=== PATIENT | female | born 1955 | race Caucasian/White ===

== ENCOUNTER → 2017-09-17 | Outpatient (CLI) | payer OTHER ==
[~2017-09-17] MED LIST: ATEN50; CIPR500 PO; HYDACE5 PO
[2017-09-19 14:46] LABS: HPV Genotype 16 Not Detected (NOTDET); HPV Genotype 18 Not Detected (NOTDET)
[2017-09-24 13:17] LABS: HPV High Risk Other Not Detected (NOTDET)
== END | disposition home or self-care (01) ==
LOC: OLS 12:13 → LAB SHORT 12:13
PROVIDERS: Nurse Practitioner Women's Health
DX: Z12.72 Encounter for screening for malignant neoplasm of vagina (principal); Z91.89 Other specified personal risk factors, not elsewhere classified
CPT/HCPCS: 87624; G0123

== ENCOUNTER 2018-05-31 08:26 | Day surgery (SDC) | payer OTHER | END 2018-05-31 22:45 | disposition home or self-care (01) | LOC: MOI US 08:26 → MOI MAM 08:45 → MOI US 22:45 | DX: C50.912 Malignant neoplasm of unspecified site of left female breast (principal) | CPT/HCPCS: 19083; 77065; 88305; 88341; 88342; A4648; G0279 ==

== ENCOUNTER 2018-06-11 10:08 | Emergency (ER) | payer OTHER ==
[~2018-06-11] VITALS: Ht 157.5 cm; Wt 91.6 kg
[2018-06-11] MEDS ORDERED: AMLO5 PO (10:36)
[2018-06-11] MEDS ORDERED: Ventolin/Prove6.7 GM (10:36)
[2018-06-11] MEDS ORDERED: SPIRIVA RESPIMAT4 GM IH (10:36)
[2018-06-11] MEDS ORDERED: METO25 (10:37)
[2018-06-11] MEDS ORDERED: Prednisone20 MG PO (11:28)
[2018-06-11] MEDS ORDERED: Mucinex600 MG PO (11:52)
[2018-07-05] MEDS ORDERED: AMLO5 PO (08:09)
[2018-07-05] MEDS ORDERED: IBU800 MG PO (08:12)
[2018-07-05] MEDS ORDERED: METO25 PO (08:12)
[2018-07-05] MEDS ORDERED: ASPI81CH PO (08:13)
[2018-07-05] MEDS ORDERED: CONEST.625 VAG (08:14)
== END 2018-06-11 11:38 | disposition home or self-care (01) ==
LOC: ER 10:08
DX: J45.909 Unspecified asthma, uncomplicated (principal); C50.919 Malignant neoplasm of unspecified site of unspecified female breast; F17.200 Nicotine dependence, unspecified, uncomplicated; Z85.3 Personal history of malignant neoplasm of breast; Z88.5 Allergy status to narcotic agent; Z79.899 Other long term (current) drug therapy
CPT/HCPCS: 36415; 71045; 93005; 93010; 94640; 94664; 99284-25

== ENCOUNTER 2018-06-29 08:55 | Day surgery (SDC) | payer OTHER ==
[~2018-06-29 08:55] MED LIST changes: +AMLO5 PO; +METO25; +Mucinex600 MG PO; +Prednisone20 MG PO; +SPIRIVA RESPIMAT4 GM IH; +Ventolin/Prove6.7 GM
[2018-07-05] MEDS ORDERED: AMLO5 PO (08:09)
[2018-07-05] MEDS ORDERED: IBU800 MG PO (08:12)
[2018-07-05] MEDS ORDERED: METO25 PO (08:12)
[2018-07-05] MEDS ORDERED: ASPI81CH PO (08:13)
[2018-07-05] MEDS ORDERED: CONEST.625 VAG (08:14)
== END 2018-06-29 22:43 | disposition home or self-care (01) ==
LOC: MOI US 08:55 → MOI MAM 09:30 → MOI US 09:30
DX: C50.812 Malignant neoplasm of overlapping sites of left female breast (principal)
CPT/HCPCS: 19285; 77065

== ENCOUNTER 2018-07-09 07:50 | Day surgery (SDC) | payer OTHER ==
[~2018-07-09] VITALS: Ht 160 cm; Wt 95.7 kg
[~2018-07-09 07:50] MED LIST changes: +ASPI81CH PO; +CONEST.625 VAG; +IBU800 MG PO; +METO25 PO
--- NOTE | 2018-07-09 09:34 | NUR ---
0915 CAOX4, VSS, CONFIRMS NPO/PREP/PROCEDURE, TOOK BETABLOCKER THIS AM. LUNGS COARSE T/O BILAT, SMOKER. Ambulatory in Day Surgery Surgical site prepped with 2% Chlorhexidine cloth wipe. History, Chart, Medications and Allergies reviewed before start of procedure.Patient confirms NPO status and agrees with scheduled surgery. Pre-Op teaching done. Pt verbalizes understanding. Patient reports completing Chlorhexadine shower X2 prior to admission to hospital.
[2018-07-09] MEDS ORDERED: TIOT18 INH (09:45)
--- NOTE | 2018-07-09 11:48 | NUR ---
07/09/18 1148 Prince Parry MEDICATION ON PAPER CHART-DID NOT CROSS OVER IN COMPUTER
--- NOTE | 2018-07-09 13:43 | NUR ---
FROM PACU TO STEP WANTING TO BE DISCHARGED. GIVEN ICE CHIPS AND PROCEEDED WITH PREPARING PATIENT FOR DISCHARGE. Discharge instructions reviewed with patient. Patient verbalizes understanding. Copy given to patient to take home. Patient States Post-Procedure ride home has been arranged. Discharged via wheelchair to private car for ride home.
== END 2018-07-09 23:10 | disposition home or self-care (01) ==
LOC: RAD 07:50 → ORSCMMR 07:51 → RAD 08:00 → NM 09:00 → RAD 23:10
DX: C50.812 Malignant neoplasm of overlapping sites of left female breast (principal); Z88.2 Allergy status to sulfonamides; Z88.5 Allergy status to narcotic agent; Z88.1 Allergy status to other antibiotic agents; Z17.0 Estrogen receptor positive status [ER+]
CPT/HCPCS: 38792; 76098; 88307; 88342; A9520; J0330; J0690; J1100; J2250; J2405; J2765; J3010; J7120; Q9968

== ENCOUNTER → 2019-03-02 | Outpatient (CLI) | payer OTHER ==
[~2019-03-02] MED LIST changes: +TIOT18 INH
[2019-03-04 14:07] LABS: HPV 16 Negative (Negative); HPV 18 Negative (Negative); HPV OTHER HR TYPES Negative (Negative)
== END | disposition home or self-care (01) ==
LOC: LAB SHORT 17:28 → LAB 17:28
PROVIDERS: Nurse Practitioner Women's Health
DX: Z12.72 Encounter for screening for malignant neoplasm of vagina (principal); Z91.89 Other specified personal risk factors, not elsewhere classified
CPT/HCPCS: 87624; G0123

== ENCOUNTER 2019-05-24 07:37 | Emergency (ER) | payer OTHER ==
[~2019-05-24] VITALS: Ht 165.1 cm; Wt 81.7 kg
[2019-05-24 08:25] LABS: Source, Urine Clean Catch
[2019-05-24 08:30] LABS: BASOPHILS ABSOLUTE AUTO 0.04 K/mm3 (0.00-0.23); BASOPHILS PERCENT AUTO 1 % (0-2); EOSINOPHILS ABSOLUTE AUTO 0.07 K/mm3 (0.00-0.68); EOSINOPHILS PERCENT AUTO 1 % (0-6); Hematocrit 45.9 % (33.0-51.0); IMMATURE GRAN ABSOLUTE AUTO 0.04 K/mm3 (0.00-0.10); IMMATURE GRAN PERCENT AUTO 1 % (0-1); LYMPHOCYTES ABSOLUTE AUTO 1.29 K/mm3 (0.84-5.20); LYMPHOCYTES PERCENT AUTO 16 % (21-46); MONOCYTES ABSOLUTE AUTO 0.72 K/mm3 (0.16-1.47); MONOCYTES PERCENT AUTO 9 % (4-13); Mean Corpuscular HGB 36.4 pg (26.0-34.0); Mean Corpuscular HGB Conc 34.9 g/dL (31.5-36.5); Mean Corpuscular Volume 104 fL (80-100); Mean Platelet Volume 10.1 fL (9.1-12.4); NEUTROPHILS ABSOLUTE AUTO 6.12 K/mm3 (1.96-9.15); NEUTROPHILS PERCENT AUTO 74 % (41-73); Platelet Count 175 K/mm3 (150-400); RDW Coefficient Variation 13.4 % (11.7-14.2); RDW Standard Deviation 51.7 fL (35.1-46.3); White Blood Cell Count 8.28 K/mm3 (4.00-11.30)
[2019-05-24 08:37] LABS: Blood, Urine 2+ (Neg); Glucose Qualitative, Urine Neg (Neg); Ketones, Urine 1+ (Neg); Leukocyte Esterase, Urine 1+ (Neg); Nitrite, Urine Pos (Neg); Protein, Urine 2+ (Neg); Specific Gravity, Urine 1.015 (1.003-1.022); Urobilinogen, Urine 3+ (Normal)
[2019-05-24 08:51] LABS: Appearance, Urine Clear (Clear); Bilirubin, Urine 1+ (Neg); Color, Urine Orange (P-Yellow)
[2019-05-24 08:52] LABS: Albumin, Blood 3.4 g/dL (3.4-5.0); Albumin/Globulin Ratio 0.9 (0.8-1.8); Bilirubin, Total 0.3 mg/dL (0.1-1.0); Bun/Creatinine Ratio 9.6 (12.0-20.0); Calcium, Blood 9.6 mg/dL (8.5-10.1); Creatinine, Blood 1.36 mg/dL (0.40-1.00); Globulin, Blood 3.8 g/dL (2.2-4.0); Potassium, Blood 3.9 mmol/L (3.5-5.5); Total Protein, Blood 7.2 g/dL (6.4-8.2)
[2019-05-24 08:53] LABS: Bacteria Mod /hpf; Squamous Epithelial Cells Few /hpf (Few)
[2019-05-24] MEDS ORDERED: ONDA4ODT MM (10:21)
[2019-05-24] MEDS ORDERED: Percocet 5-3251 EACH PO (10:21)
[2019-05-24] MEDS ORDERED: Keflex500 MG PO (10:21)
== END 2019-05-24 11:18 | disposition home or self-care (01) ==
LOC: ER 07:37
PROVIDERS: Emergency Medicine
DX: N13.2 Hydronephrosis with renal and ureteral calculous obstruction (principal); Z88.5 Allergy status to narcotic agent; Z88.2 Allergy status to sulfonamides; Z88.1 Allergy status to other antibiotic agents; Z88.8 Allergy status to other drugs, medicaments and biological substances; Z79.899 Other long term (current) drug therapy; Z79.82 Long term (current) use of aspirin; Z85.3 Personal history of malignant neoplasm of breast; F17.210 Nicotine dependence, cigarettes, uncomplicated
CPT/HCPCS: 36415; 74176; 80053; 81001; 83690; 85025; 87086; 96361; 96374; 96375; 99284-25; J0696; J1170; J1885; J2405; J7120

== ENCOUNTER 2019-05-26 16:37 | Emergency (ER) | payer OTHER ==
[~2019-05-26] VITALS: Ht 160 cm; Wt 90.7 kg
[~2019-05-26 16:37] MED LIST changes: +Keflex500 MG PO; +ONDA4ODT MM; +Percocet 5-3251 EACH PO
[2019-05-26 17:11] LABS: BASOPHILS ABSOLUTE AUTO 0.04 K/mm3 (0.00-0.23); BASOPHILS PERCENT AUTO 0 % (0-2); EOSINOPHILS ABSOLUTE AUTO 0.14 K/mm3 (0.00-0.68); EOSINOPHILS PERCENT AUTO 1 % (0-6); Hematocrit 47.5 % (33.0-51.0); Hemoglobin 16.1 g/dL (11.5-16.0); IMMATURE GRAN ABSOLUTE AUTO 0.02 K/mm3 (0.00-0.10); IMMATURE GRAN PERCENT AUTO 0 % (0-1); LYMPHOCYTES ABSOLUTE AUTO 1.95 K/mm3 (0.84-5.20); LYMPHOCYTES PERCENT AUTO 19 % (21-46); MONOCYTES ABSOLUTE AUTO 0.82 K/mm3 (0.16-1.47); MONOCYTES PERCENT AUTO 8 % (4-13); Mean Corpuscular HGB 36.3 pg (26.0-34.0); Mean Corpuscular HGB Conc 33.9 g/dL (31.5-36.5); Mean Platelet Volume 9.9 fL (9.1-12.4); NEUTROPHILS ABSOLUTE AUTO 7.45 K/mm3 (1.96-9.15); NEUTROPHILS PERCENT AUTO 72 % (41-73); Platelet Count 209 K/mm3 (150-400); RDW Coefficient Variation 13.5 % (11.7-14.2); RDW Standard Deviation 53.5 fL (35.1-46.3); Red Blood Cell Count 4.44 M/mm3 (3.80-5.20); White Blood Cell Count 10.42 K/mm3 (4.00-11.30)
[2019-05-26 17:12] LABS: Mean Corpuscular Volume 107 fL (80-100)
[2019-05-26 17:33] LABS: Alanine Aminotransfer (ALT/SGP 35 U/L (12-78); Albumin, Blood 3.5 g/dL (3.4-5.0); Albumin/Globulin Ratio 0.9 (0.8-1.8); Alk Phos 60 U/L (50-136); Anion Gap 5 mmol/L (6-16); Aspartate Aminotrans (AST/SGOT 32 U/L (12-37); Bilirubin, Total 0.4 mg/dL (0.1-1.0); Blood Urea Nitrogen 11 mg/dL (8-24); Bun/Creatinine Ratio 13.5 (12.0-20.0); CO2, Blood 25 mmol/L (21-32); Calcium, Blood 8.8 mg/dL (8.5-10.1); Chloride, Blood 106 mmol/L (98-108); Creatinine, Blood 0.81 mg/dL (0.40-1.00); Globulin, Blood 3.9 g/dL (2.2-4.0); Glomerular Filtration Rate >60 (60-); Glucose, Blood 115 mg/dL (70-99); Sodium, Blood 136 mmol/L (136-145); Total Protein, Blood 7.4 g/dL (6.4-8.2)
== END 2019-05-26 20:03 | disposition home or self-care (01) ==
LOC: ER 16:37
PROVIDERS: Emergency Medicine
DX: N23 Unspecified renal colic (principal); I10 Essential (primary) hypertension; Z85.3 Personal history of malignant neoplasm of breast; J45.909 Unspecified asthma, uncomplicated; F17.210 Nicotine dependence, cigarettes, uncomplicated; Z79.899 Other long term (current) drug therapy; Z79.82 Long term (current) use of aspirin
CPT/HCPCS: 36415; 80053; 85025; 96374; 96375; 99284-25; J1170; J1885; J2405

== ENCOUNTER 2019-05-27 23:03 | Emergency (ER) | payer OTHER ==
[~2019-05-27] VITALS: Ht 160 cm; Wt 90.7 kg
[2019-05-28] MEDS ORDERED: KETO10 PO (00:13)
== END 2019-05-28 00:26 | disposition home or self-care (01) ==
LOC: ER 23:03
DX: N20.1 Calculus of ureter (principal); N23 Unspecified renal colic; I10 Essential (primary) hypertension; J45.909 Unspecified asthma, uncomplicated; F17.210 Nicotine dependence, cigarettes, uncomplicated; Z88.5 Allergy status to narcotic agent; Z88.2 Allergy status to sulfonamides; Z88.1 Allergy status to other antibiotic agents; Z88.8 Allergy status to other drugs, medicaments and biological substances; Z79.899 Other long term (current) drug therapy; Z79.82 Long term (current) use of aspirin; Z87.442 Personal history of urinary calculi
CPT/HCPCS: 96372; 99283; J1885; J2405; J3010

== ENCOUNTER → 2019-10-13 | Outpatient (CLI) | payer OTHER ==
[~2019-10-13] MED LIST changes: +KETO10 PO
== END | disposition home or self-care (01) ==
LOC: LAB SHORT 14:00 → LAB EV 14:00
DX: R05 Cough (principal); Z20.828 Contact with and (suspected) exposure to other viral communicable diseases
CPT/HCPCS: U0003

== ENCOUNTER → 2021-05-12 | Outpatient (CLI) | payer OTHER | END | disposition home or self-care (01) | LOC: LAB 15:23 → LAB SHORT 15:23 | DX: R30.9 Painful micturition, unspecified (principal) | CPT/HCPCS: 87077; 87086; 87186 ==

== ENCOUNTER 2021-12-11 10:01 | Inpatient (IN) | payer OTHER ==
[~2021-12-11] VITALS: Ht 160 cm; Wt 72.6 kg
[~2021-12-11 10:01] MED LIST changes: +AMOCLA875 PO; +Diflucan100 MG PO; +IBU800 M1 PO; +LATANOPROST2.5 M3 BOTHEYES; +METOPROLOL TART25 MG PO; +SPIRONOLACTONE50 MG PO; +STIOLTO RESPIMAT4 G1 INH; +Ventolin/Prove6.7 GM INH
[2021-12-11 10:42] LABS: BASOPHILS ABSOLUTE AUTO 0.15 K/mm3 (0.00-0.23); BASOPHILS PERCENT AUTO 1 % (0-2); EOSINOPHILS PERCENT AUTO 0 % (0-6); Hematocrit 46.6 % (33.0-51.0); Hemoglobin 16.7 g/dL (11.5-16.0); IMMATURE GRAN ABSOLUTE AUTO 1.18 K/mm3 (0.00-0.10); IMMATURE GRAN PERCENT AUTO 5 % (0-1); LYMPHOCYTES ABSOLUTE AUTO 1.39 K/mm3 (0.84-5.20); LYMPHOCYTES PERCENT AUTO 6 % (21-46); MONOCYTES ABSOLUTE AUTO 0.92 K/mm3 (0.16-1.47); MONOCYTES PERCENT AUTO 4 % (4-13); Mean Corpuscular HGB 36.7 pg (26.0-34.0); Mean Corpuscular HGB Conc 35.8 g/dL (31.5-36.5); Mean Corpuscular Volume 102 fL (80-100); Mean Platelet Volume 9.5 fL (9.1-12.4); NEUTROPHILS ABSOLUTE AUTO 20.69 K/mm3 (1.96-9.15); NEUTROPHILS PERCENT AUTO 85 % (41-73); Platelet Count 297 K/mm3 (150-400); RDW Coefficient Variation 13.5 % (11.7-14.2); Red Blood Cell Count 4.55 M/mm3 (3.80-5.20); White Blood Cell Count 24.33 K/mm3 (4.00-11.30)
[2021-12-11 11:10] LABS: Albumin, Blood 2.7 g/dL (3.4-5.0); Albumin/Globulin Ratio 0.6 (0.8-1.8); Bilirubin, Total 0.9 mg/dL (0.1-1.0); Calcium, Blood 9.4 mg/dL (8.5-10.1); Creatinine, Blood 0.72 mg/dL (0.40-1.00); Globulin, Blood 4.8 g/dL (2.2-4.0); Potassium, Blood 4.9 mmol/L (3.5-5.5); Total Protein, Blood 7.5 g/dL (6.4-8.2)
[2021-12-11 14:20] LABS: Influenza A, PCR NEGATIVE (NEGATIVE); Influenza B, PCR NEGATIVE (NEGATIVE); Resp Syncytial Virus, PCR NEGATIVE (NEGATIVE); SARS-Cov-2 (COVID-19) PCR, MMC NEGATIVE (NEGATIVE)
[2021-12-12 05:33] LABS: BASOPHILS ABSOLUTE AUTO 0.09 K/mm3 (0.00-0.23); BASOPHILS PERCENT AUTO 0 % (0-2); EOSINOPHILS PERCENT AUTO 0 % (0-6); Hematocrit 44.6 % (33.0-51.0); Hemoglobin 15.6 g/dL (11.5-16.0); IMMATURE GRAN ABSOLUTE AUTO 0.34 K/mm3 (0.00-0.10); IMMATURE GRAN PERCENT AUTO 2 % (0-1); LYMPHOCYTES ABSOLUTE AUTO 0.65 K/mm3 (0.84-5.20); LYMPHOCYTES PERCENT AUTO 3 % (21-46); MONOCYTES ABSOLUTE AUTO 0.51 K/mm3 (0.16-1.47); MONOCYTES PERCENT AUTO 2 % (4-13); Mean Corpuscular HGB 37.1 pg (26.0-34.0); Mean Corpuscular Volume 106 fL (80-100); Mean Platelet Volume 9.9 fL (9.1-12.4); NEUTROPHILS ABSOLUTE AUTO 21.17 K/mm3 (1.96-9.15); NEUTROPHILS PERCENT AUTO 93 % (41-73); Platelet Count 247 K/mm3 (150-400); RDW Coefficient Variation 13.5 % (11.7-14.2); RDW Standard Deviation 53.8 fL (35.1-46.3); White Blood Cell Count 22.76 K/mm3 (4.00-11.30)
--- NOTE | 2021-12-12 05:37 | NUR ---
SHIFT SUMMARY PT ER ADMIT THIS SHIFT FOR PNA. PT BECOMES VERY SOB WITH MINIMAL EXERTION. BREATHING IS POSITIONAL. PT REPORTS THAT SHE IS UNABLE TO LAY FLAT WITHOUT SOB AND BOUTS OF COUGHING. PT HAS AN INTERMITTENT NON PRODUCTIVE HACKING COUGH. 2L O2 IN PLACE, SATS WNL. LUNGS COURSE AND TIGHT WITH EXPIRATORY WHEEZES T/O. IV SOLUMEDROL PER ORDERS. NEB TREATMENTS PER EMAR. PT HAS BEEN INDEPEDNENT IN THE ROOM. A/OX4. PT HAS BEEN RESTLESS AND AWAKE T/O THE NIGHT, AND MOSTLY WATCHED TV T/O SHIFT. MED REC HAS BEEN COMPLETED THIS SHIFT. NO ACUTE CHANGES OVERNIGHT. BED IN LOWEST POSITION, CALL LIGHT WITHIN REACH.
[2021-12-12 06:06] LABS: Albumin, Blood 2.6 g/dL (3.4-5.0); Albumin/Globulin Ratio 0.6 (0.8-1.8); Bilirubin, Total 0.9 mg/dL (0.1-1.0); Bun/Creatinine Ratio 46.8 (12.0-20.0); Calcium, Blood 9.1 mg/dL (8.5-10.1); Creatinine, Blood 0.79 mg/dL (0.40-1.00); Globulin, Blood 4.5 g/dL (2.2-4.0); Potassium, Blood 4.5 mmol/L (3.5-5.5); Total Protein, Blood 7.1 g/dL (6.4-8.2)
--- NOTE | 2021-12-12 16:31 | NUR ---
SHIFT SUMMARY PATIENT IS ALERT AND ORIENTED. PATIENT HAS BEEN IND IN ROOM. PATIENT IS ON 2L NC. PATIENT HAS SOB WITH EXERTION. PATIENTS HR HAS BEEN A CONCERN EARLIER IN SHIFT. NOTIFIED DR, DR CHANGED MEDICATIONS AND BETTER CONTROLLED. PATIENT HAS HAD PRODUCTIVE COUGH AND SENT SAMPLE. VITAL SIGNS REVIEWED. PATIENT HAS NOT COMPLAINED OF NAUSEA, VOMITTING OR PAIN THIS SHIFT. BED IN LOCKED AND LOWERED POSITION. CALL LIGHT IN PLACE. WILL MONITOR UNTIL SHIFT CHANGE.
[2021-12-13 05:19] LABS: Hematocrit 41.1 % (33.0-51.0); Hemoglobin 14.4 g/dL (11.5-16.0); Mean Corpuscular HGB 36.9 pg (26.0-34.0); Mean Corpuscular Volume 105 fL (80-100); Mean Platelet Volume 9.9 fL (9.1-12.4); Platelet Count 247 K/mm3 (150-400); RDW Coefficient Variation 13.4 % (11.7-14.2); RDW Standard Deviation 52.1 fL (35.1-46.3); White Blood Cell Count 27.21 K/mm3 (4.00-11.30)
[2021-12-13 05:38] LABS: Bun/Creatinine Ratio 49.5 (12.0-20.0); Calcium, Blood 9.1 mg/dL (8.5-10.1); Creatinine, Blood 0.67 mg/dL (0.40-1.00); Potassium, Blood 4.3 mmol/L (3.5-5.5)
[2021-12-13 05:40] LABS: BAND PERCENT MAN 8 % (0-8); BASOPHILS PERCENT MAN 0 % (0-2); EOSINOPHILS PERCENT MAN 0 % (0-6); LYMPHOCYTES ABSOLUTE MAN 0.27 K/mm3 (0.84-5.20); LYMPHOCYTES PERCENT MAN 1 % (21-46); METAMYELOCYTE ABSOLUTE MAN 0.54 K/mm3 (0.00-0.00); METAMYELOCYTE PERCENT MAN 2 % (0-0); MONOCYTES PERCENT MAN 0 % (4-13); NEUTROPHILS ABSOLUTE MAN 26.39 K/mm3 (1.96-9.15); SEG NEUTROPHILS PERCENT MAN 89 % (41-73); TOTAL CELLS COUNTED 100
--- NOTE | 2021-12-13 17:10 | NUR ---
SHIFT SUMMARY PATIENT IS ALERT AND ORIENTED X4. PATIENT IS IND IN ROOM DEPENDING ON HR AND SOB ON EXERTION. PATIENT HAS HAD NO ACUTE EVENTS THIS SHIFT. PATIENTS HR HAS BEEN ELEVATED. DR CHANGED HR MEDICATIONS AND HR HAS BEEN BETTER BUT TACHS UP WITH EXERTION. PATIENT HAS BEEN ON 2.5L NC ENTIRE SHIFT. VITAL SIGNS REVIEWED. BED IN LOCKED AND LOWERED POSITION. CALL LIGHT IN PLACE. WILL MONITOR UNTIL SHIFT CHANGE.
--- NOTE | 2021-12-14 06:22 | NUR ---
SHIFT SUMMARY - PT REPORTS SLEEPING APPX 5 HOURS TONIGHT, AND REPORTS SHE IS FEELING MUCH BETTER THIS AM. PT IS CURRENTLY SITTING UP IN BED, RESPIRATIONS ARE EVEN AND UNLABORED. NO ACUTE CHANGES THROUGHOUT THIS SHIFT. FLUIDS AT BEDSIDE. CALL LIGHT WITHIN REACH. BED IN LOW POSITION. PT REPORTS SHE DRINKS 1-2 DRINKS OF WINE DAILY, IS A LONG TIME SMOKER, AND DRINKS COFFEE DAILY. PT REPORTS SHE IS GOING TO ATTEMPT TO QUIT SMOKING. WILL CONTINUE TO MONITOR UNTIL AM SHIFT CHANGE.
--- NOTE | 2021-12-14 18:09 | NUR ---
END OF SHIFT SUMMARY: PATIENT ON 3L OF O2 VIA NC THROUGHOUT THE DAY WITH O2 SATURATIONS BETWEEN 93-96%. PATIENT EXPERIENCES SHORTNESS OF BREATH WITH ACTIVITY. PATIENT TAKES BREAKS APPROPRIATE. PATIENT RESPONDS WELL TO COACHING TO SLOW AND CONTROL HER BREATHING. PATIENT IS HIGHLY MOTIVATED TO QUIT SMOKING. PATIENT HAS OCCASIONAL COUGH WITH MINIMAL SPUTUM. PATIENT DENIES NAUSEA OR ABDOMINAL DISCOMFORT. PATIENT DENIED NEED FOR BOWEL CARE TODAY. PATIENT HAS A MODERATE APPETITE, REPORTING THAT SHE IS A VERY PICKY EATER.
--- NOTE | 2021-12-14 22:11 | NUR ---
AT 2140 [facility] CONTACTED THIS NURSE ABOUT PT HAVING A RUN OF V-TACH, APPROX 10 SECONDS. INFORMED MD AND WILL CONTINUE TO MONITOR THIS PT KEEPING THEM ON CONTINUOUS TELEMETRY. ASSESSED PT AND THEY STATED THAT THEY WERE BREATHING OKAY, THEIR BP IS STABLE AND O2 IS >90% ON 3L, HR IS 108-117.
--- NOTE | 2021-12-15 05:07 | NUR ---
ASSUMED CARE OF PT AT 1900. PT IS A&OX4, INDEPENDENT WITH CARES AND IS ABLE TO MAKE NEEDS KNOWN. PT HAD A A COUPLE OF RUNS OF V-TACH LAST NIGHT WHEN AMBULATING TO THE BR. CALLED MD AND MADE THEM AWARE, PT IS TO REMAIN ON TELE TO OBSERVE ANY CHANGES. PT RESTS BETWEEN CARES, SLEEPS 6+ HOURS THIS SHIFT. NO COMPLAINTS OF SOB THIS SHIFT. TOLERATING DIET. WILL CONTINUE TO MONITOR THIS PT AND GIVE REPORT TO ONCOMING RN.
[2021-12-15 05:09] LABS: BASOPHILS ABSOLUTE AUTO 0.09 K/mm3 (0.00-0.23); BASOPHILS PERCENT AUTO 0 % (0-2); EOSINOPHILS PERCENT AUTO 0 % (0-6); Hematocrit 37.3 % (33.0-51.0); Hemoglobin 12.7 g/dL (11.5-16.0); IMMATURE GRAN ABSOLUTE AUTO 0.91 K/mm3 (0.00-0.10); IMMATURE GRAN PERCENT AUTO 4 % (0-1); LYMPHOCYTES ABSOLUTE AUTO 0.65 K/mm3 (0.84-5.20); LYMPHOCYTES PERCENT AUTO 3 % (21-46); MONOCYTES ABSOLUTE AUTO 0.62 K/mm3 (0.16-1.47); MONOCYTES PERCENT AUTO 3 % (4-13); Mean Corpuscular HGB 36.2 pg (26.0-34.0); Mean Corpuscular Volume 106 fL (80-100); Mean Platelet Volume 9.7 fL (9.1-12.4); NEUTROPHILS ABSOLUTE AUTO 18.48 K/mm3 (1.96-9.15); NEUTROPHILS PERCENT AUTO 89 % (41-73); Platelet Count 225 K/mm3 (150-400); RDW Coefficient Variation 13.3 % (11.7-14.2); RDW Standard Deviation 52.9 fL (35.1-46.3); Red Blood Cell Count 3.51 M/mm3 (3.80-5.20); White Blood Cell Count 20.75 K/mm3 (4.00-11.30)
[2021-12-15 05:34] LABS: Albumin, Blood 2.2 g/dL (3.4-5.0); Anion Gap 6 mmol/L (6-16); Blood Urea Nitrogen 30 mg/dL (8-24); Bun/Creatinine Ratio 46.9 (12.0-20.0); CO2, Blood 25 mmol/L (21-32); Calcium, Blood 8.7 mg/dL (8.5-10.1); Chloride, Blood 104 mmol/L (98-108); Creatinine, Blood 0.64 mg/dL (0.40-1.00); Glomerular Filtration Rate 99 (60-); Glucose, Blood 188 mg/dL (70-99); Magnesium, Blood 2.3 mg/dL (1.6-2.4); Phosphorus, Blood 2.8 mg/dL (2.5-4.9); Potassium, Blood 4.5 mmol/L (3.5-5.5); Sodium, Blood 135 mmol/L (136-145)
--- NOTE | 2021-12-15 10:00 | NUR ---
V-TACH: LATE ENTRY: DISCUSSED SHORT RUN OF V-TACH EXPERIENCED BY THE PATIENT DURING THE NIGHT. PATIENT VERIFIED WITH DR. REYNA THAT SHE WAS ASYMPTOMATIC AT THE TIME, BUT THAT SHE WAS UP IN THE ROOM GOING TO THE BATHROOM. HOME MEDICATIONS DISCUSSED. NO NEW ORDERS AT THIS TIME.
[2021-12-15] MEDS ORDERED: BENZ100A PO ×2 (12:47)
[2021-12-15] MEDS ORDERED: DILT120 PO ×2 (12:49)
[2021-12-15] MEDS ORDERED: FURO20 PO ×2 (12:49)
[2021-12-15] MEDS ORDERED: NICO21TP TOP ×2 (12:50)
[2021-12-15] MEDS ORDERED: GUAI600T33 PO ×2 (12:50)
[2021-12-15] MEDS ORDERED: [UNRECOGNIZED DRUG - CODE] PO ×2 (12:52)
[2021-12-15] MEDS ORDERED: AMOCLA875 PO ×2 (12:53)
[2021-12-15] MEDS ORDERED: LACT PO ×2 (12:53)
[2021-12-15] MEDS ORDERED: Prednisone10 MG PO ×2 (14:13)
--- NOTE | 2021-12-15 15:36 | NUR ---
SHIFT SUMMARY NO ACUTE EVENT. PTN SOB WITH EXERTION. PTN SEEN BY RT AND O2 NOW 2L AT REST AND 4 L WITH ACTIVITY. PTN TO DC HOME, DC CARE PLAN COMPLETED.
--- NOTE | 2021-12-15 19:21 | NUR ---
PHARMACY CLOSURES: LATE ENTRY: ONCE THE PATIENT HAD DISCHARGED, THEY LEARNED AT [facility] THAT THE PHARMACY IS UNEXPECTEDLY CLOSED. RE-FAXED MEDICATIONS TO [facility] PER PATIENT REQUEST. RECEIVED ANOTHER PHONE CALL THAT THE PHARMACY REPORTS THEY DID NOT RECEIVE ONE OF THE PRESCRIPTIONS. ALL PRESCRIPTIONS FAXED HAD BEEN VERIFIED. RE-FAXED FOR THE PATIENT TO OBTAIN TOMORROW.
== END 2021-12-15 14:19 | disposition home health service (06) | DRG 194 ==
LOC: ER 10:01 → MEDS 17:18
PROVIDERS: Family Medicine; Physician Assistant; Student in an Organized Health Care Education/Training Program; ADMIT Hospitalist
DX: J18.9 Pneumonia, unspecified organism (principal); B37.0 Candidal stomatitis; J44.0 Chronic obstructive pulmonary disease with (acute) lower respiratory infection; J44.1 Chronic obstructive pulmonary disease with (acute) exacerbation; Z20.822 Contact with and (suspected) exposure to COVID-19; E55.9 Vitamin D deficiency, unspecified; E78.00 Pure hypercholesterolemia, unspecified; I10 Essential (primary) hypertension; M47.812 Spondylosis without myelopathy or radiculopathy, cervical region; M54.9 Dorsalgia, unspecified; G89.29 Other chronic pain; F17.210 Nicotine dependence, cigarettes, uncomplicated; H40.9 Unspecified glaucoma; M81.0 Age-related osteoporosis without current pathological fracture; R79.89 Other specified abnormal findings of blood chemistry; R00.0 Tachycardia, unspecified; Z87.442 Personal history of urinary calculi; Z85.3 Personal history of malignant neoplasm of breast; Z90.49 Acquired absence of other specified parts of digestive tract; Z90.710 Acquired absence of both cervix and uterus; Z90.12 Acquired absence of left breast and nipple; Z98.890 Other specified postprocedural states; Z83.3 Family history of diabetes mellitus; Z82.49 Family history of ischemic heart disease and other diseases of the circulatory system; Z82.3 Family history of stroke; Z88.0 Allergy status to penicillin; Z88.5 Allergy status to narcotic agent; Z88.8 Allergy status to other drugs, medicaments and biological substances; Z79.2 Long term (current) use of antibiotics; Z79.51 Long term (current) use of inhaled steroids; Z79.899 Other long term (current) drug therapy
CPT/HCPCS: 0241U; 36415; 71045; 80048; 80053; 80069; 83735; 83880; 84145; 84484; 85025; 93005; 93010; 93971; 94640; 94664; 94760; 94761; 96365; 96366; 96375; 99285-25; A9270; J0456; J0696; J1650; J2405; J2920; J7050; J7120

== ENCOUNTER 2021-12-18 15:38 | Emergency (ER) | payer OTHER ==
[~2021-12-18] VITALS: Ht 160 cm; Wt 72.6 kg
[~2021-12-18 15:38] MED LIST changes: +BENZ100A PO; +DILT120 PO; +FURO20 PO; +GUAI600T33 PO; +LACT PO; +NICO21TP TOP; +Prednisone10 MG PO; +[UNRECOGNIZED DRUG - CODE] PO
[2021-12-18 16:12] LABS: BASOPHILS ABSOLUTE AUTO 0.06 K/mm3 (0.00-0.23); BASOPHILS PERCENT AUTO 0 % (0-2); EOSINOPHILS PERCENT AUTO 0 % (0-6); Hematocrit 41.4 % (33.0-51.0); Hemoglobin 14.6 g/dL (11.5-16.0); IMMATURE GRAN PERCENT AUTO 3 % (0-1); LYMPHOCYTES ABSOLUTE AUTO 0.68 K/mm3 (0.84-5.20); LYMPHOCYTES PERCENT AUTO 4 % (21-46); MONOCYTES ABSOLUTE AUTO 0.37 K/mm3 (0.16-1.47); MONOCYTES PERCENT AUTO 2 % (4-13); Mean Corpuscular HGB 36.1 pg (26.0-34.0); Mean Corpuscular HGB Conc 35.3 g/dL (31.5-36.5); Mean Corpuscular Volume 103 fL (80-100); Mean Platelet Volume 9.5 fL (9.1-12.4); NEUTROPHILS ABSOLUTE AUTO 17.64 K/mm3 (1.96-9.15); NEUTROPHILS PERCENT AUTO 92 % (41-73); Platelet Count 285 K/mm3 (150-400); RDW Coefficient Variation 13.2 % (11.7-14.2); RDW Standard Deviation 50.2 fL (35.1-46.3); Red Blood Cell Count 4.04 M/mm3 (3.80-5.20); White Blood Cell Count 19.25 K/mm3 (4.00-11.30)
[2021-12-18 16:36] LABS: Albumin, Blood 2.6 g/dL (3.4-5.0); Albumin/Globulin Ratio 0.6 (0.8-1.8); Bilirubin, Total 0.7 mg/dL (0.1-1.0); Bun/Creatinine Ratio 39.5 (12.0-20.0); Calcium, Blood 9.4 mg/dL (8.5-10.1); Creatinine, Blood 0.81 mg/dL (0.40-1.00); Globulin, Blood 4.4 g/dL (2.2-4.0); Potassium, Blood 4.8 mmol/L (3.5-5.5)
[2021-12-18] MEDS ORDERED: Norco 5-325 Ta1 EACH PO ×2 (19:32→19:33)
[2021-12-18] MEDS ORDERED: Xylocaine5 M1 PO (19:32)
== END 2021-12-18 19:36 | disposition home or self-care (01) ==
LOC: ER 15:38
PROVIDERS: Physician Assistant
DX: K20.90 Esophagitis, unspecified without bleeding (principal); M54.10 Radiculopathy, site unspecified; I10 Essential (primary) hypertension; E11.9 Type 2 diabetes mellitus without complications; J44.9 Chronic obstructive pulmonary disease, unspecified; I25.10 Atherosclerotic heart disease of native coronary artery without angina pectoris; F17.210 Nicotine dependence, cigarettes, uncomplicated; Z79.899 Other long term (current) drug therapy; Z79.82 Long term (current) use of aspirin; Z79.52 Long term (current) use of systemic steroids; Z88.1 Allergy status to other antibiotic agents; Z88.5 Allergy status to narcotic agent; Z88.2 Allergy status to sulfonamides; Z88.8 Allergy status to other drugs, medicaments and biological substances
CPT/HCPCS: 36415; 71045; 71260; 80053; 83880; 84484; 85025; 85379; 93005; 93010; Q9967

== ENCOUNTER → 2021-12-31 | Outpatient (CLI) | payer OTHER ==
[~2021-12-31] MED LIST changes: +Norco 5-325 Ta1 EACH PO; +Xylocaine5 M1 PO
== END | disposition home or self-care (01) ==
LOC: PLD 15:06 → LAB SHORT 15:06
DX: R23.4 Changes in skin texture (principal)
CPT/HCPCS: 88305

== ENCOUNTER → 2022-01-20 | Outpatient (CLI) | payer OTHER ==
[2022-01-20 13:47] LABS: BASOPHILS ABSOLUTE AUTO 0.04 K/mm3 (0.00-0.23); BASOPHILS PERCENT AUTO 0 % (0-2); EOSINOPHILS ABSOLUTE AUTO 0.08 K/mm3 (0.00-0.68); EOSINOPHILS PERCENT AUTO 1 % (0-6); Hematocrit 40.4 % (33.0-51.0); Hemoglobin 13.7 g/dL (11.5-16.0); IMMATURE GRAN ABSOLUTE AUTO 0.07 K/mm3 (0.00-0.10); IMMATURE GRAN PERCENT AUTO 1 % (0-1); LYMPHOCYTES ABSOLUTE AUTO 2.64 K/mm3 (0.84-5.20); LYMPHOCYTES PERCENT AUTO 25 % (21-46); MONOCYTES ABSOLUTE AUTO 0.64 K/mm3 (0.16-1.47); MONOCYTES PERCENT AUTO 6 % (4-13); Mean Corpuscular HGB 35.6 pg (26.0-34.0); Mean Corpuscular HGB Conc 33.9 g/dL (31.5-36.5); Mean Corpuscular Volume 105 fL (80-100); Mean Platelet Volume 9.3 fL (9.1-12.4); NEUTROPHILS PERCENT AUTO 67 % (41-73); Platelet Count 249 K/mm3 (150-400); RDW Coefficient Variation 14.6 % (11.7-14.2); RDW Standard Deviation 57.3 fL (35.1-46.3); Red Blood Cell Count 3.85 M/mm3 (3.80-5.20); White Blood Cell Count 10.57 K/mm3 (4.00-11.30)
[2022-01-20 14:10] LABS: Albumin, Blood 2.9 g/dL (3.4-5.0); Albumin/Globulin Ratio 0.8 (0.8-1.8); Bilirubin, Total 0.5 mg/dL (0.1-1.0); Bun/Creatinine Ratio 9.9 (12.0-20.0); Calcium, Blood 8.6 mg/dL (8.5-10.1); Creatinine, Blood 1.01 mg/dL (0.40-1.00); Globulin, Blood 3.8 g/dL (2.2-4.0); Potassium, Blood 3.8 mmol/L (3.5-5.5); Thyroid Stimulating Hormone 0.595 uIU/mL (0.360-4.800); Total Protein, Blood 6.7 g/dL (6.4-8.2)
== END ==
LOC: LAB SHORT 13:43 → LAB 13:43
PROVIDERS: Physician Assistant
DX: R55 Syncope and collapse (principal); R53.83 Other fatigue
CPT/HCPCS: 80053; 83880; 84443; 84484; 85025

== ENCOUNTER 2022-05-22 12:12 | Emergency (ER) | payer OTHER ==
[~2022-05-22] VITALS: Ht 160 cm; Wt 68.0 kg
[2022-05-22 13:43] LABS: BASOPHILS ABSOLUTE AUTO 0.08 K/mm3 (0.00-0.23); BASOPHILS PERCENT AUTO 1 % (0-2); EOSINOPHILS ABSOLUTE AUTO 0.11 K/mm3 (0.00-0.68); EOSINOPHILS PERCENT AUTO 1 % (0-6); Hemoglobin 15.8 g/dL (11.5-16.0); IMMATURE GRAN ABSOLUTE AUTO 0.11 K/mm3 (0.00-0.10); IMMATURE GRAN PERCENT AUTO 1 % (0-1); LYMPHOCYTES ABSOLUTE AUTO 2.95 K/mm3 (0.84-5.20); LYMPHOCYTES PERCENT AUTO 24 % (21-46); MONOCYTES ABSOLUTE AUTO 1.01 K/mm3 (0.16-1.47); MONOCYTES PERCENT AUTO 8 % (4-13); Mean Corpuscular HGB 36.2 pg (26.0-34.0); Mean Corpuscular HGB Conc 35.1 g/dL (31.5-36.5); Mean Corpuscular Volume 103 fL (80-100); NEUTROPHILS ABSOLUTE AUTO 8.18 K/mm3 (1.96-9.15); NEUTROPHILS PERCENT AUTO 66 % (41-73); Platelet Count 300 K/mm3 (150-400); RDW Coefficient Variation 17.7 % (11.7-14.2); RDW Standard Deviation 67.4 fL (35.1-46.3); Red Blood Cell Count 4.36 M/mm3 (3.80-5.20); White Blood Cell Count 12.44 K/mm3 (4.00-11.30)
[2022-05-22 13:48] LABS: Influenza A, PCR NEGATIVE (NEGATIVE); Influenza B, PCR NEGATIVE (NEGATIVE); Resp Syncytial Virus, PCR NEGATIVE (NEGATIVE); SARS-Cov-2 (COVID-19) PCR, MMC NEGATIVE (NEGATIVE)
[2022-05-22 14:01] LABS: Albumin, Blood 3.2 g/dL (3.4-5.0); Albumin/Globulin Ratio 0.8 (0.8-1.8); Bilirubin, Total 0.8 mg/dL (0.1-1.0); Bun/Creatinine Ratio 14.4 (12.0-20.0); Calcium, Blood 9.4 mg/dL (8.5-10.1); Creatinine, Blood 0.97 mg/dL (0.40-1.00); Potassium, Blood 5.2 mmol/L (3.5-5.5); Total Protein, Blood 7.2 g/dL (6.4-8.2)
[2022-05-22] MEDS ORDERED: AMOCLA875 PO (16:41)
[2022-05-22] MEDS ORDERED: FLUC150A PO ×2 (16:47→16:49)
== END 2022-05-22 16:56 | disposition home or self-care (01) ==
LOC: ER 12:12
PROVIDERS: Physician Assistant
DX: J01.90 Acute sinusitis, unspecified (principal); J44.9 Chronic obstructive pulmonary disease, unspecified; I10 Essential (primary) hypertension; F17.210 Nicotine dependence, cigarettes, uncomplicated; Z88.5 Allergy status to narcotic agent; Z88.2 Allergy status to sulfonamides; Z88.1 Allergy status to other antibiotic agents; Z88.8 Allergy status to other drugs, medicaments and biological substances; Z79.899 Other long term (current) drug therapy; Z79.82 Long term (current) use of aspirin; Z20.822 Contact with and (suspected) exposure to COVID-19
CPT/HCPCS: 0241U; 36415; 71046; 80053; 85025

== ENCOUNTER 2022-09-16 08:28 | Day surgery (SDC) | payer OTHER ==
[~2022-09-16] VITALS: Ht 160 cm; Wt 68.4 kg
[~2022-09-16 08:28] MED LIST changes: +FLUC150A PO
--- NOTE | 2022-09-16 09:20 | NUR ---
09/16/22 [address] FINLEY ABOUT ALLERGY TO CIPROFLOXACIN DOCUMENTED IN COMPUTER CAUSING DIARRHEA, BUT PATIENT IS NOT SURE ABOUT WHAT KIND OF REACTION SHE HAS, PER DR FINLEY OK TO PROCEED CONSULTED DR ACOSTA ABOUT RHONCHI IN LUNGS, OK TO PROCEED PER DR ACOSTA
[2022-09-16] MEDS ORDERED: IBUP800 PO (09:23)
--- NOTE | 2022-09-16 10:12 | NUR ---
09/16/22 1012 DESTINY GRAJEDA MAY USE ABX OINTMENT TO EYE TID FOR DISCOMFORT PER DR. FINLEY.
== END 2022-09-16 10:29 | disposition home or self-care (01) ==
LOC: ORSCSDS 08:28
PROVIDERS: Student in an Organized Health Care Education/Training Program
PROC: 08DK3ZZ Extraction of Left Lens, Percutaneous Approach (ICD-10-PCS; principal; 2022-09-16 10:00)
DX: H25.12 Age-related nuclear cataract, left eye (principal); I12.9 Hypertensive chronic kidney disease with stage 1 through stage 4 chronic kidney disease, or unspecified chronic kidney disease; N18.9 Chronic kidney disease, unspecified; J44.9 Chronic obstructive pulmonary disease, unspecified; Z87.891 Personal history of nicotine dependence; Z79.82 Long term (current) use of aspirin; Z79.899 Other long term (current) drug therapy
CPT/HCPCS: A9270; J2001; J2250; J3010; J7040; V2632

== ENCOUNTER 2022-09-30 08:01 | Day surgery (SDC) | payer OTHER ==
[~2022-09-30] VITALS: Ht 160 cm; Wt 68.0 kg
[~2022-09-30 08:01] MED LIST changes: +IBUP800 PO
--- NOTE | 2022-09-30 09:06 | NUR ---
09/30/22 0906 Inocencio Dawkins CALL LIGHT WITHIN REACH. TETRACAINE IN RIGHT EYE AT 0850 AND PLEDGETT IN RIGHT EYE AT 0851.
[2022-09-30 10:05] VITALS: BP 89/54
== END 2022-09-30 10:20 | disposition home or self-care (01) ==
LOC: ORSCSDS 08:01
PROVIDERS: Student in an Organized Health Care Education/Training Program
PROC: 08DJ3ZZ Extraction of Right Lens, Percutaneous Approach (ICD-10-PCS; principal; 2022-09-30 09:30)
DX: H25.11 Age-related nuclear cataract, right eye (principal); J44.9 Chronic obstructive pulmonary disease, unspecified; I10 Essential (primary) hypertension; R06.02 Shortness of breath; Z79.82 Long term (current) use of aspirin; Z79.899 Other long term (current) drug therapy
CPT/HCPCS: J2001; J2250; J3010; J7040; V2632

== ENCOUNTER → 2023-01-27 | Outpatient (CLI) | payer OTHER ==
[2023-01-28 08:11] LABS: Candida species (DNA Probe) Positive (NEGATIVE); G. vaginalis (DNA Probe) Positive (NEGATIVE); T. vaginalis (DNA Probe) Negative (NEGATIVE)
== END | disposition home or self-care (01) ==
LOC: LAB SHORT 11:20 → LAB 11:20
PROVIDERS: Family Medicine
DX: N89.8 Other specified noninflammatory disorders of vagina (principal)
CPT/HCPCS: 87480; 87510; 87660

== ENCOUNTER → 2023-07-16 | Outpatient (CLI) | payer OTHER ==
[~2023-07-16] MED LIST changes: +ACET325 PO; +ELIQUIS2.5 MG PO; +PRAM.5 PO
== END | disposition home or self-care (01) ==
LOC: LAB SHORT 15:25 → LAB 15:25
DX: R35.0 Frequency of micturition (principal)
CPT/HCPCS: 87086

== ENCOUNTER → 2023-11-27 | Outpatient (CLI) | payer OTHER ==
[~2023-11-27] MED LIST changes: +Zithromax250 MG PO
== END | disposition home or self-care (01) ==
LOC: LAB 13:23 → LAB SHORT 13:23
DX: N39.0 Urinary tract infection, site not specified (principal)
CPT/HCPCS: 87077; 87086; 87186

== ENCOUNTER 2024-02-11 11:29 | Emergency (ER) | payer OTHER ==
[~2024-02-11] VITALS: Ht 160 cm; Wt 61.2 kg
[2024-02-11 12:09] LABS: BASOPHILS ABSOLUTE AUTO 0.09 K/mm3 (0.00-0.23); BASOPHILS PERCENT AUTO 1 % (0-2); EOSINOPHILS ABSOLUTE AUTO 0.42 K/mm3 (0.00-0.68); EOSINOPHILS PERCENT AUTO 4 % (0-6); Hematocrit 39.7 % (33.0-51.0); Hemoglobin 12.7 g/dL (11.5-16.0); IMMATURE GRAN PERCENT AUTO 1 % (0-1); LYMPHOCYTES ABSOLUTE AUTO 2.94 K/mm3 (0.84-5.20); LYMPHOCYTES PERCENT AUTO 24 % (21-46); MONOCYTES ABSOLUTE AUTO 1.02 K/mm3 (0.16-1.47); MONOCYTES PERCENT AUTO 9 % (4-13); Mean Corpuscular HGB 32.6 pg (26.0-34.0); Mean Corpuscular Volume 102 fL (80-100); Mean Platelet Volume 9.4 fL (9.1-12.4); NEUTROPHILS PERCENT AUTO 62 % (41-73); Platelet Count 288 K/mm3 (150-400); RDW Coefficient Variation 16.7 % (11.7-14.2); RDW Standard Deviation 62.6 fL (35.1-46.3); Red Blood Cell Count 3.89 M/mm3 (3.80-5.20); White Blood Cell Count 12.07 K/mm3 (4.00-11.30)
[2024-02-11 12:35] LABS: Albumin/Globulin Ratio 0.8 (0.8-1.8); Bilirubin, Total 0.5 mg/dL (0.1-1.0); Bun/Creatinine Ratio 12.5 (12.0-20.0); Calcium, Blood 9.1 mg/dL (8.5-10.1); Creatinine, Blood 0.88 mg/dL (0.40-1.00); Globulin, Blood 3.9 g/dL (2.2-4.0); Potassium, Blood 4.7 mmol/L (3.5-5.5); Total Protein, Blood 6.9 g/dL (6.4-8.2)
[2024-02-11] MEDS ORDERED: Ketorolac Tromethamine 15mg Vial IV ONE (14:20)
[2024-02-11] MEDS ORDERED: DiphenhydrAMINE HCl 50 MG/ML 1ML Vial IV ONE (14:20)
[2024-02-11] MEDS ORDERED: Acetaminophen 500 MG Tab PO ONE (14:20)
[2024-02-11] MEDS ORDERED: Prochlorperazine Edisylate 10 mg Vial IV ONE (14:20)
[2024-02-11] MEDS ORDERED: NS 1,000 ML IV SCH (14:20)
[2024-02-11 15:30] VITALS: BP 107/93
[2024-02-11] MEDS ORDERED: ACET500 PO (15:48)
== END 2024-02-11 15:55 | disposition home or self-care (01) ==
LOC: ER 11:29
PROVIDERS: Physician Assistant
DX: R51.9 Headache, unspecified (principal); I10 Essential (primary) hypertension; E11.9 Type 2 diabetes mellitus without complications; J44.9 Chronic obstructive pulmonary disease, unspecified; E78.00 Pure hypercholesterolemia, unspecified; Z86.73 Personal history of transient ischemic attack (TIA), and cerebral infarction without residual deficits; F17.210 Nicotine dependence, cigarettes, uncomplicated; Z79.82 Long term (current) use of aspirin; Z79.899 Other long term (current) drug therapy; Z79.52 Long term (current) use of systemic steroids; Z88.0 Allergy status to penicillin; Z88.2 Allergy status to sulfonamides; Z88.8 Allergy status to other drugs, medicaments and biological substances
CPT/HCPCS: 70450; 80053; 85025; 96361; 96374; 96375; 99284-25; A9270; J0780; J1200; J1885; J7030

== ENCOUNTER 2024-06-15 11:51 | Emergency (ER) | payer OTHER ==
[~2024-06-15] VITALS: Ht 160 cm; Wt 63.5 kg
[~2024-06-15 11:51] MED LIST changes: +ACET500 PO
[2024-06-15 13:44] LABS: BASOPHILS ABSOLUTE AUTO 0.06 K/mm3 (0.00-0.23); BASOPHILS PERCENT AUTO 0 % (0-2); EOSINOPHILS ABSOLUTE AUTO 0.18 K/mm3 (0.00-0.68); EOSINOPHILS PERCENT AUTO 1 % (0-6); Hematocrit 29.7 % (33.0-51.0); Hemoglobin 9.4 g/dL (11.5-16.0); IMMATURE GRAN ABSOLUTE AUTO 0.22 K/mm3 (0.00-0.10); IMMATURE GRAN PERCENT AUTO 2 % (0-1); LYMPHOCYTES ABSOLUTE AUTO 2.77 K/mm3 (0.84-5.20); LYMPHOCYTES PERCENT AUTO 20 % (21-46); MONOCYTES ABSOLUTE AUTO 1.02 K/mm3 (0.16-1.47); MONOCYTES PERCENT AUTO 7 % (4-13); Mean Corpuscular HGB 30.5 pg (26.0-34.0); Mean Corpuscular HGB Conc 31.6 g/dL (31.5-36.5); Mean Corpuscular Volume 96 fL (80-100); Mean Platelet Volume 9.6 fL (9.1-12.4); NEUTROPHILS ABSOLUTE AUTO 9.48 K/mm3 (1.96-9.15); NEUTROPHILS PERCENT AUTO 69 % (41-73); Platelet Count 375 K/mm3 (150-400); RDW Coefficient Variation 18.3 % (11.7-14.2); RDW Standard Deviation 64.2 fL (35.1-46.3); Red Blood Cell Count 3.08 M/mm3 (3.80-5.20); White Blood Cell Count 13.73 K/mm3 (4.00-11.30)
[2024-06-15 14:15] LABS: Albumin, Blood 3.1 g/dL (3.4-5.0); Albumin/Globulin Ratio 0.8 (0.8-1.8); Bilirubin, Total 0.5 mg/dL (0.1-1.0); Bun/Creatinine Ratio 17.9 (12.0-20.0); Calcium, Blood 9.4 mg/dL (8.5-10.1); Creatinine, Blood 0.9 mg/dL (0.40-1.00); Globulin, Blood 3.7 g/dL (2.2-4.0); Magnesium, Blood 1.5 mg/dL (1.6-2.4); Potassium, Blood 4.7 mmol/L (3.5-5.5); Total Protein, Blood 6.8 g/dL (6.4-8.2)
[2024-06-15] MEDS ORDERED: Magnesium Sulf 2 GM/Water 50ML 50 ML IV ONE (17:50)
[2024-06-15] MEDS ORDERED: NS 1,000 ML IV SCH (17:50)
[2024-06-15 18:01] LABS: Source, Urine Clean Catch
[2024-06-15 18:07] LABS: Appearance, Urine Clear (Clear); Bilirubin, Urine Neg (Neg); Blood, Urine Neg (Neg); Color, Urine Yellow (P-Yellow); Glucose Qualitative, Urine Neg (Neg); Ketones, Urine Neg (Neg); Leukocyte Esterase, Urine Neg (Neg); Nitrite, Urine Neg (Neg); Protein, Urine Neg (Neg); Urobilinogen, Urine NORM (Normal)
[2024-06-15 18:38] VITALS: BP 118/71
== END 2024-06-15 19:41 | disposition home or self-care (01) ==
LOC: ER 11:51
PROVIDERS: Physician Assistant; Student in an Organized Health Care Education/Training Program
DX: M54.50 Low back pain, unspecified (principal); E86.0 Dehydration; R42 Dizziness and giddiness; Z79.899 Other long term (current) drug therapy; Z79.82 Long term (current) use of aspirin; Z88.0 Allergy status to penicillin; Z88.1 Allergy status to other antibiotic agents; Z88.2 Allergy status to sulfonamides; Z88.8 Allergy status to other drugs, medicaments and biological substances
CPT/HCPCS: 71046; 80053; 81003; 83735; 84484; 85025; 93005; 93010; 96365; 99284-25; J3475; J7030

== ENCOUNTER 2024-10-03 21:58 | Emergency (ER) | payer OTHER ==
[~2024-10-03] VITALS: Ht 160 cm; Wt 68.0 kg
[2024-10-03 22:21] VITALS: BP 114/64
[2024-10-04] MEDS ORDERED: LevoFLOXacin 750 MG/D5W 150ML 150 ML IV ONE (02:10)
== END 2024-10-04 02:28 | disposition home or self-care (01) ==
LOC: ER 21:58
DX: S51.812A Laceration without foreign body of left forearm, initial encounter (principal); I10 Essential (primary) hypertension; J44.9 Chronic obstructive pulmonary disease, unspecified; E11.9 Type 2 diabetes mellitus without complications; F17.210 Nicotine dependence, cigarettes, uncomplicated; Z88.8 Allergy status to other drugs, medicaments and biological substances; Z88.0 Allergy status to penicillin; Z88.2 Allergy status to sulfonamides; Z88.5 Allergy status to narcotic agent; Z79.01 Long term (current) use of anticoagulants; Z79.2 Long term (current) use of antibiotics; Z79.82 Long term (current) use of aspirin; W01.0XXA Fall on same level from slipping, tripping and stumbling without subsequent striking against object, initial encounter
CPT/HCPCS: 99282

== ENCOUNTER → 2024-10-18 | Outpatient (CLI) | payer OTHER ==
[2024-10-18 14:27] LABS: BASOPHILS ABSOLUTE AUTO 0.03 K/mm3 (0.00-0.23); BASOPHILS PERCENT AUTO 0 % (0-2); EOSINOPHILS ABSOLUTE AUTO 0.04 K/mm3 (0.00-0.68); EOSINOPHILS PERCENT AUTO 0 % (0-6); Hematocrit 32.8 % (33.0-51.0); Hemoglobin 10.6 g/dL (11.5-16.0); IMMATURE GRAN ABSOLUTE AUTO 0.32 K/mm3 (0.00-0.10); IMMATURE GRAN PERCENT AUTO 2 % (0-1); LYMPHOCYTES ABSOLUTE AUTO 1.58 K/mm3 (0.84-5.20); LYMPHOCYTES PERCENT AUTO 9 % (21-46); MONOCYTES PERCENT AUTO 4 % (4-13); Mean Corpuscular HGB 31.5 pg (26.0-34.0); Mean Corpuscular HGB Conc 32.3 g/dL (31.5-36.5); Mean Corpuscular Volume 97 fL (80-100); Mean Platelet Volume 9.4 fL (9.1-12.4); NEUTROPHILS ABSOLUTE AUTO 14.26 K/mm3 (1.96-9.15); NEUTROPHILS PERCENT AUTO 85 % (41-73); Platelet Count 244 K/mm3 (150-400); RDW Coefficient Variation 16.3 % (11.7-14.2); RDW Standard Deviation 57.8 fL (35.1-46.3); Red Blood Cell Count 3.37 M/mm3 (3.80-5.20); White Blood Cell Count 16.83 K/mm3 (4.00-11.30)
[2024-10-18 14:38] LABS: Albumin, Blood 2.7 g/dL (3.4-5.0); Albumin/Globulin Ratio 0.7 (0.8-1.8); Bilirubin, Total 0.4 mg/dL (0.1-1.0); Bun/Creatinine Ratio 29.3 (12.0-20.0); Calcium, Blood 9.8 mg/dL (8.5-10.1); Creatinine, Blood 0.99 mg/dL (0.40-1.00); Globulin, Blood 4.1 g/dL (2.2-4.0); Potassium, Blood 4.6 mmol/L (3.5-5.5); Total Protein, Blood 6.8 g/dL (6.4-8.2)
== END ==
LOC: LAB SHORT 14:22 → LAB 14:22
PROVIDERS: Physician Assistant Medical
DX: R53.1 Weakness (principal)
CPT/HCPCS: 80053; 84484; 85025

== ENCOUNTER 2024-11-13 15:32 | Inpatient (IN) | payer OTHER ==
[~2024-11-13] VITALS: Ht 160 cm; Wt 72.5 kg
[~2024-11-13 15:32] MED LIST changes: +LASIX40 MG PO; +METO50 PO; -METOPROLOL TART25 MG PO
[2024-11-13 16:32] LABS: Hematocrit 30.5 % (33.0-51.0); Hemoglobin 9.7 g/dL (11.5-16.0); Mean Corpuscular HGB 31.5 pg (26.0-34.0); Mean Corpuscular HGB Conc 31.8 g/dL (31.5-36.5); Mean Corpuscular Volume 99 fL (80-100); Mean Platelet Volume 9.4 fL (9.1-12.4); Platelet Count 355 K/mm3 (150-400); RDW Coefficient Variation 16.3 % (11.7-14.2); RDW Standard Deviation 59.6 fL (35.1-46.3); Red Blood Cell Count 3.08 M/mm3 (3.80-5.20); White Blood Cell Count 25.67 K/mm3 (4.00-11.30)
[2024-11-13 16:59] LABS: Albumin, Blood 2.8 g/dL (3.4-5.0); Albumin/Globulin Ratio 0.7 (0.8-1.8); Bilirubin, Total 0.6 mg/dL (0.1-1.0); Bun/Creatinine Ratio 15.7 (12.0-20.0); Calcium, Blood 9.5 mg/dL (8.5-10.1); Creatinine, Blood 1.4 mg/dL (0.40-1.00); Globulin, Blood 3.9 g/dL (2.2-4.0); Potassium, Blood 4.2 mmol/L (3.5-5.5); Total Protein, Blood 6.7 g/dL (6.4-8.2)
[2024-11-13 17:07] LABS: BASOPHILS PERCENT MAN 0 % (0-2); EOSINOPHILS PERCENT MAN 0 % (0-6); LYMPHOCYTES ABSOLUTE MAN 2.82 K/mm3 (0.84-5.20); LYMPHOCYTES PERCENT MAN 11 % (21-46); METAMYELOCYTE ABSOLUTE MAN 0.25 K/mm3 (0.00-0.00); METAMYELOCYTE PERCENT MAN 1 % (0-0); MONOCYTES ABSOLUTE MAN 1.79 K/mm3 (0.16-1.47); MONOCYTES PERCENT MAN 7 % (4-13); NEUTROPHILS ABSOLUTE MAN 20.79 K/mm3 (1.96-9.15); SEG NEUTROPHILS PERCENT MAN 81 % (41-73); TOTAL CELLS COUNTED 100
[2024-11-13] MEDS ORDERED: CefTRIAXone Sodium 1,000 MG in NS 100 ML IV ONE (19:30)
[2024-11-13] MEDS ORDERED: Ondansetron HCl 2 MG / ML 2ML Vial IV PRN (20:55)
[2024-11-13] MEDS ORDERED: NS 1,000 ML IV SCH (21:00)
[2024-11-13] MEDS ORDERED: Metoprolol Tartrate 25 MG Tab PO SCH (21:00)
[2024-11-13] MEDS ORDERED: Docusate Sodium 100 MG Cap PO SCH (21:00)
[2024-11-13] MEDS ORDERED: Lactobacil 2-S.Thermo-Bifido 1 1 Cap PO SCH (21:00)
[2024-11-14 06:07] LABS: BASOPHILS ABSOLUTE AUTO 0.05 K/mm3 (0.00-0.23); BASOPHILS PERCENT AUTO 0 % (0-2); EOSINOPHILS ABSOLUTE AUTO 0.03 K/mm3 (0.00-0.68); EOSINOPHILS PERCENT AUTO 0 % (0-6); Hematocrit 28.3 % (33.0-51.0); IMMATURE GRAN ABSOLUTE AUTO 0.18 K/mm3 (0.00-0.10); IMMATURE GRAN PERCENT AUTO 1 % (0-1); LYMPHOCYTES ABSOLUTE AUTO 2.15 K/mm3 (0.84-5.20); LYMPHOCYTES PERCENT AUTO 14 % (21-46); MONOCYTES ABSOLUTE AUTO 1.22 K/mm3 (0.16-1.47); MONOCYTES PERCENT AUTO 8 % (4-13); Mean Corpuscular HGB 31.6 pg (26.0-34.0); Mean Corpuscular HGB Conc 31.8 g/dL (31.5-36.5); Mean Corpuscular Volume 99 fL (80-100); Mean Platelet Volume 9.5 fL (9.1-12.4); NEUTROPHILS ABSOLUTE AUTO 12.32 K/mm3 (1.96-9.15); NEUTROPHILS PERCENT AUTO 77 % (41-73); Platelet Count 285 K/mm3 (150-400); RDW Coefficient Variation 16.2 % (11.7-14.2); RDW Standard Deviation 59.3 fL (35.1-46.3); Red Blood Cell Count 2.85 M/mm3 (3.80-5.20); White Blood Cell Count 15.95 K/mm3 (4.00-11.30)
[2024-11-14 06:40] LABS: Albumin, Blood 2.5 g/dL (3.4-5.0); Albumin/Globulin Ratio 0.7 (0.8-1.8); Bilirubin, Total 0.4 mg/dL (0.1-1.0); Bun/Creatinine Ratio 21.4 (12.0-20.0); Calcium, Blood 9.1 mg/dL (8.5-10.1); Creatinine, Blood 1.12 mg/dL (0.40-1.00); Globulin, Blood 3.8 g/dL (2.2-4.0); Magnesium, Blood 1.8 mg/dL (1.6-2.4); Potassium, Blood 4.2 mmol/L (3.5-5.5); Total Protein, Blood 6.3 g/dL (6.4-8.2)
[2024-11-14 08:27] VITALS: BP 84/63
[2024-11-14 08:41] VITALS: BP 94/64
[2024-11-14] MEDS ORDERED: Aspirin 81 MG Chew PO SCH (09:00)
[2024-11-14] MEDS ORDERED: Enoxaparin 40 MG/0.4 ML SYR SC SCH (09:00)
[2024-11-14] MEDS ORDERED: K-TAB ER20 ME1 PO (09:22)
[2024-11-14] MEDS ORDERED: MONDOXYNE NL100 MG PO (09:23)
[2024-11-14] MEDS ORDERED: GABA100 PO (09:24)
[2024-11-14] MEDS ORDERED: FERROUS SULFAT325 M3 PO (09:25)
[2024-11-14] MEDS ORDERED: ERGO50000 PO ×2 (09:25→09:47)
[2024-11-14] MEDS ORDERED: IBUP800 PO (09:37)
[2024-11-14] MEDS ORDERED: DIAZ2 PO (09:44)
[2024-11-14] MEDS ORDERED: CODACE30 PO (09:52)
[2024-11-14] MEDS ORDERED: Lactated Ringer's 1,000 ML IV ONE (10:05)
[2024-11-14] MEDS ORDERED: Acetaminophen 325 MG TABLET PO PRN (10:05)
[2024-11-14] MEDS ORDERED: Lactated Ringer's 1,000 ML IV SCH (10:05)
[2024-11-14] MEDS ORDERED: OxyCODONE HCL 5 MG TAB PO PRN (10:50)
[2024-11-14] MEDS ORDERED: Apixaban 5 MG Tab PO SCH ×2 (11:00→21:00)
[2024-11-14] MEDS ORDERED: CefTRIAXone Sodium 1,000 MG in NS 100 ML IV SCH (12:00)
[2024-11-14 13:43] VITALS: BP 97/73
[2024-11-14] MEDS ORDERED: Ipratropium/Albuterol SulF 2.5-0.5MG/3 ML Amp INH SCH (15:45)
[2024-11-14] MEDS ORDERED: Gabapentin 100 MG Cap PO SCH (15:56)
[2024-11-14] MEDS ORDERED: Pramipexole DI-HCL 0.25 MG Tab PO SCH (17:00)
[2024-11-14 17:26] VITALS: BP 98/54
[2024-11-14] MEDS ORDERED: Vancomycin HCL 1,500 MG in NS 250 ML IV ONE (17:50)
--- NOTE | 2024-11-14 17:55 | NUR ---
SHIFT SUMMARY: PT A&OX4 FOLLOWS COMMANDS AND MAKES NEEDS KNOWN TO STAFF. PT REMAINED FREE OF ANY CP, PRESSURE, TIGHTNESS OR SOB. BLOOD PRESSURE HAS BEEN SOFT ALL DAY AND METOPROLOL WAS HELD. PROVIDER AWARE. PT WAS ABLE TO AMBULATE TO THE BATHROOM WITH SBA AND WALKER. LR CONTINUES. NO SIGNIFICANT EVENTS HAPPENED DURING THIS SHIFT. WILL CONTINUE TO CARE FOR PT WILL END OF SHIFT.
[2024-11-14 19:29] VITALS: BP 103/63
--- NOTE | 2024-11-14 20:18 | NUR ---
ASSUMED CARE OF THIS PATIENT AT 1900. PT IS ALERT AMD ORIENTATED X4 ABLE TO MAKE NEEDS KNOWN. SITTING UP IN BED. SHE HAD FAMILY AT BED SIDE VISITING. VSS. TELE IN PLACE SHOWING SINUS TACH AT 116 DURING VITALS BEING OBTAINED. IV ABX INFUSING PER EMAR. LLE WRAPPED IN AN JAK BANDAGE AT THIS TIME WITH NO VISABLE DRAINAGE THROUGH DRESSING. PULSES PRESENT. BED IN LOWEST POSTION, CALL LIGHT IN REACH.
[2024-11-14] MEDS ORDERED: Gabapentin 300 MG Cap PO SCH (21:00)
[2024-11-14 23:40] VITALS: BP 93/55
[2024-11-15] VITALS (8 sets, daily range): BP systolic 86–114; BP diastolic 61–75
[2024-11-15 03:38] LABS: BASOPHILS ABSOLUTE AUTO 0.03 K/mm3 (0.00-0.23); BASOPHILS PERCENT AUTO 0 % (0-2); EOSINOPHILS ABSOLUTE AUTO 0.04 K/mm3 (0.00-0.68); EOSINOPHILS PERCENT AUTO 0 % (0-6); Hematocrit 24.5 % (33.0-51.0); Hemoglobin 7.9 g/dL (11.5-16.0); IMMATURE GRAN ABSOLUTE AUTO 0.12 K/mm3 (0.00-0.10); IMMATURE GRAN PERCENT AUTO 1 % (0-1); LYMPHOCYTES ABSOLUTE AUTO 1.86 K/mm3 (0.84-5.20); LYMPHOCYTES PERCENT AUTO 16 % (21-46); MONOCYTES PERCENT AUTO 8 % (4-13); Mean Corpuscular HGB 32.5 pg (26.0-34.0); Mean Corpuscular HGB Conc 32.2 g/dL (31.5-36.5); Mean Corpuscular Volume 101 fL (80-100); Mean Platelet Volume 9.5 fL (9.1-12.4); NEUTROPHILS ABSOLUTE AUTO 8.63 K/mm3 (1.96-9.15); NEUTROPHILS PERCENT AUTO 75 % (41-73); Platelet Count 242 K/mm3 (150-400); RDW Coefficient Variation 16.3 % (11.7-14.2); RDW Standard Deviation 60.3 fL (35.1-46.3); Red Blood Cell Count 2.43 M/mm3 (3.80-5.20); White Blood Cell Count 11.58 K/mm3 (4.00-11.30)
[2024-11-15 04:05] LABS: Albumin/Globulin Ratio 0.6 (0.8-1.8); Bilirubin, Total 0.2 mg/dL (0.1-1.0); Bun/Creatinine Ratio 19.5 (12.0-20.0); Calcium, Blood 8.2 mg/dL (8.5-10.1); Creatinine, Blood 0.87 mg/dL (0.40-1.00); Globulin, Blood 3.3 g/dL (2.2-4.0); Magnesium, Blood 1.6 mg/dL (1.6-2.4); Thyroid Stimulating Hormone 0.496 uIU/mL (0.360-4.800); Total Protein, Blood 5.3 g/dL (6.4-8.2)
--- NOTE | 2024-11-15 04:46 | NUR ---
SHIFT SUMMARY PT REMAINS A+O X4, ABLE TO MAKE NEEDS KNOWN. SHE IS A 1 PERSON TRANSFER W/FWW TO THE BATHROOM. SHE MOVES ALL EXTERMITIES IN BED. L FOOT HAS BEEN PROPPED UP ON A PILLOW T/O MOST OF THE SHIFT. JAK BANDAGE WAS REMOVED TO CHECK WOUND ON LLE NO VISABLE DISCHARGE OR WEEPING WHEN THIS WAS DONE. PT STATES HER PAIN IS WELL MANAGAED WITH THE AVALIBLE PAIN MEDICATIONS. PT WAS ABLE TO REST ON AND OFF DURING THE NIGHT IN BETWEEN CARES. BP REMAINS SOFT, PT DENIES CHEST PAIN OR PRESSURE, REMAINS IN TELE SHOWING SINUS AT A RATE OF 84 AT THIS TIME. ON RA SATTING OVER 95% WITH SPOT CHECKS. BREATHING EVEN AND UNLABORED IN NO ACUTE DISTRESS. BED IN LOWEST POSTION, SIDE RAILS UP X3, CALL LIGHT IN REACH. WILL CONTINUE WITH PLAN OF CARE AND REPORT TO ONCOMING RN.
[2024-11-15] MEDS ORDERED: Nicotine 21 MG PATCH TOP SCH (09:00)
[2024-11-15] MEDS ORDERED: Furosemide 20 MG Tab PO SCH (09:00)
[2024-11-15] MEDS ORDERED: Potassium Chloride 10 Meq Tablet SA PO SCH (09:00)
[2024-11-15] MEDS ORDERED: Magnesium Sulf 2 GM/Water 50ML 50 ML IV ONE (11:15)
[2024-11-15] MEDS ORDERED: IPRAT-ALBUT 0.5-3 ML INH (12:47)
[2024-11-15] MEDS ORDERED: Midodrine 5 MG Tab PO SCH ×2 (13:00→18:00)
[2024-11-15] MEDS ORDERED: Midodrine 5 MG Tab PO ONE (14:05)
--- NOTE | 2024-11-15 17:09 | NUR ---
A&OX4, FULL CODE, INDEPENDENT IN ROOM & USES HER WALKER, PLACED NEW I.V. LEFT UPPER ARM, HELD METOPROLOL DUE TO DECREASED BLOOD PRESSURE & NOTIFIED DR, DR INCREASED MIDODRINE & ADMINISTERED BOTH, HAD A EPISODE OF A FIB RVR FOR ABOUT 90 SECONDS WHILE GETTING BLOOD PRESSURE, HAVE BEEN GETTING BLOOD PRESSURE IN THE RIGHT WRIST DUE TO IT CAUSING BURISING & PAIN IN UPPER ARM, CARDIO DR CONSULT TO ASSIST IN MEDICATION MANAGEMENT, ADMINSTERED MEDICATIONS PER EMAR, NO OTHER CONCERNS AT THIS TIME.
[2024-11-15] MEDS ORDERED: Vancomycin HCL 1,250 MG in NS 250 ML IV SCH (18:00)
--- NOTE | 2024-11-15 18:26 | NUR ---
REVIEWED ASSESSMENTS, CARE PLAN, EMAR, EDUCATION AND NOTES CHARTED BY KUSH FISCHER, STUDENT NURSE AND I AGREE WITH HER DOCUMENTATION FOR THIS PATIENT.
[2024-11-15] MEDS ORDERED: Lactated Ringer's 1,000 ML IV SCH (19:30)
[2024-11-16] VITALS (7 sets, daily range): BP systolic 11–117; BP diastolic 64–76
[2024-11-16 04:18] LABS: BASOPHILS ABSOLUTE AUTO 0.05 K/mm3 (0.00-0.23); BASOPHILS PERCENT AUTO 0 % (0-2); EOSINOPHILS ABSOLUTE AUTO 0.09 K/mm3 (0.00-0.68); EOSINOPHILS PERCENT AUTO 1 % (0-6); Hematocrit 28.6 % (33.0-51.0); Hemoglobin 8.7 g/dL (11.5-16.0); IMMATURE GRAN ABSOLUTE AUTO 0.16 K/mm3 (0.00-0.10); IMMATURE GRAN PERCENT AUTO 1 % (0-1); LYMPHOCYTES ABSOLUTE AUTO 1.76 K/mm3 (0.84-5.20); LYMPHOCYTES PERCENT AUTO 15 % (21-46); MONOCYTES ABSOLUTE AUTO 0.87 K/mm3 (0.16-1.47); MONOCYTES PERCENT AUTO 7 % (4-13); Mean Corpuscular HGB 31.4 pg (26.0-34.0); Mean Corpuscular HGB Conc 30.4 g/dL (31.5-36.5); Mean Corpuscular Volume 103 fL (80-100); Mean Platelet Volume 9.8 fL (9.1-12.4); NEUTROPHILS ABSOLUTE AUTO 8.92 K/mm3 (1.96-9.15); NEUTROPHILS PERCENT AUTO 75 % (41-73); Platelet Count 302 K/mm3 (150-400); RDW Coefficient Variation 16.2 % (11.7-14.2); RDW Standard Deviation 62.4 fL (35.1-46.3); Red Blood Cell Count 2.77 M/mm3 (3.80-5.20); White Blood Cell Count 11.85 K/mm3 (4.00-11.30)
[2024-11-16 05:03] LABS: Albumin, Blood 2.3 g/dL (3.4-5.0); Albumin/Globulin Ratio 0.6 (0.8-1.8); Bilirubin, Total 0.2 mg/dL (0.1-1.0); Bun/Creatinine Ratio 16.8 (12.0-20.0); Calcium, Blood 8.4 mg/dL (8.5-10.1); Creatinine, Blood 0.78 mg/dL (0.40-1.00); Globulin, Blood 3.7 g/dL (2.2-4.0); Magnesium, Blood 2.1 mg/dL (1.6-2.4); Potassium, Blood 4.8 mmol/L (3.5-5.5)
--- NOTE | 2024-11-16 06:07 | NUR ---
SHIFT SUMMARY PT IS A+O X4 ABLE TO MAKE NEEDS KNOWN. SBA W/ FWW TO BATHROOM AND TRANSFERS. MRI FORM FILLED OUT WITH PT THIS SHIFT. VSS, SHOWING SINUS ON TELE. PT IS RA SATTING >95% SPO2. BREATHING EVEN AND UNLABORED. PAIN WELL MANAGED WITH PRN PAIN MEDS. PT WAS ABLE TO KEEP LLE ELAVATED ON PILLOWS TO SLEEP. PT ABLE TO REST ON AND OFF T/O THE NIGHT IN BETWEEN CARES. BED IN LOWEST POSTION, CALL LIGHT IN REACH. WILL REPORT TO ONCOMING RN.
[2024-11-16] MEDS ORDERED: Spironolactone 25 MG Tab PO SCH (09:00)
[2024-11-16] MEDS ORDERED: Iron Dextran 50 MG / ML 2ML Vial IV ONE (09:00)
[2024-11-16] MEDS ORDERED: Iron Dextran 975 MG in NS 250 ML IV ONE (10:00)
[2024-11-16] MEDS ORDERED: LORazepam 2 MG/ML 1ML Injection IV ONE (10:55)
--- NOTE | 2024-11-16 13:11 | NUR ---
PT TRANSFERRED TO [facility] WITH TELE. REPORT GIVEN TO MUKESH NORIEGA. PT REMAINED ALERT AND ORIENTED PLEASANT AND COOPERATIVE WITH CARES. VITALS HAS BEEN STABLE. PT HAD MRI DONE THIS MORNIGN A DOSE OF ATIVAN WAS GIVEN PRIOR DUE TO CLAUSTROPHOBIA, ANOTHER MRI TO BE DONE IN AM FOR CERVICAL. IRON INFUSION WAS GIVEN WELL WITH NO ISSUES. LEFT LEG DRESSING REMAINED INTACT SOME SWELLING STILL PRESENT PT IS GOOD AT ELEVATING LEG WHEN IN BED. USES HOME WALKER TO USE THE BATHROOM. NO OTHER ISSUES REPROTED. ALL BELONGINGS SENT WITH THE PT
[2024-11-16 17:49] LABS: Vancomycin, Trough 17.5 ug/mL (5.0-10.0)
--- NOTE | 2024-11-16 17:59 | NUR ---
PT CAME FROM PCU, PT HAS NO QUESTIONS OR CONCENR . PT HAS NO C/O PAIN SOB OR CHEST PAIN
[2024-11-16] MEDS ORDERED: LORazepam 2 MG/ML 1ML Injection IV PRN (20:45)
[2024-11-16] MEDS ORDERED: NS 250 ML IV PRN (21:20)
--- NOTE | 2024-11-17 03:20 | NUR ---
SHIFT SUMMARY NO ACUTE EVENTS DURING THIS SHIFT. PT IS A/OX4, SLOW RESPONSES AND SLOW MOVEMENTS. MEDS WHOLE WITH H2O. LLE EDEMA +3. LEFT FOOT IS WRAPPED WITH JAK DRESSING, C/D. PT AMBULATES WITH SBA AND FWW TO THE RESTROOM. PT REPORTS BACKPAIN 01/22, MEDICATED PER EMAR @. TELE: SR @74. PT DENIES SOB, CP/PRESSURE. PLAN IS FOR MRI/CERVICAL TODAY. PRIOR TO MRI THERE IS AN ORDER TO GIVE ATIVAN D/T CLAUSTROPHOBIA. WILL RELY TO INCOMING RN. BED AT THE LOWEST POSITION, CALL LIGHT W/I REACH. PT IS ABLE TO MAKE HER NEEDS KNOWN AND IS COOPERATIVE WITH CARE.
[2024-11-17 04:07] VITALS: BP 108/67
[2024-11-17 06:25] LABS: BASOPHILS ABSOLUTE AUTO 0.05 K/mm3 (0.00-0.23); BASOPHILS PERCENT AUTO 1 % (0-2); EOSINOPHILS ABSOLUTE AUTO 0.06 K/mm3 (0.00-0.68); EOSINOPHILS PERCENT AUTO 1 % (0-6); Hematocrit 28.1 % (33.0-51.0); Hemoglobin 8.5 g/dL (11.5-16.0); IMMATURE GRAN ABSOLUTE AUTO 0.12 K/mm3 (0.00-0.10); IMMATURE GRAN PERCENT AUTO 2 % (0-1); LYMPHOCYTES ABSOLUTE AUTO 1.74 K/mm3 (0.84-5.20); LYMPHOCYTES PERCENT AUTO 21 % (21-46); MONOCYTES ABSOLUTE AUTO 0.76 K/mm3 (0.16-1.47); MONOCYTES PERCENT AUTO 9 % (4-13); Mean Corpuscular HGB 31.7 pg (26.0-34.0); Mean Corpuscular HGB Conc 30.2 g/dL (31.5-36.5); Mean Corpuscular Volume 105 fL (80-100); Mean Platelet Volume 9.7 fL (9.1-12.4); NEUTROPHILS ABSOLUTE AUTO 5.42 K/mm3 (1.96-9.15); NEUTROPHILS PERCENT AUTO 67 % (41-73); Platelet Count 307 K/mm3 (150-400); RDW Coefficient Variation 16.1 % (11.7-14.2); RDW Standard Deviation 61.3 fL (35.1-46.3); Red Blood Cell Count 2.68 M/mm3 (3.80-5.20); White Blood Cell Count 8.15 K/mm3 (4.00-11.30)
[2024-11-17 07:04] VITALS: BP 116/67
[2024-11-17 07:32] LABS: Albumin, Blood 2.2 g/dL (3.4-5.0); Albumin/Globulin Ratio 0.6 (0.8-1.8); Bilirubin, Total 0.2 mg/dL (0.1-1.0); Bun/Creatinine Ratio 11.7 (12.0-20.0); Calcium, Blood 8.9 mg/dL (8.5-10.1); Creatinine, Blood 0.77 mg/dL (0.40-1.00); Globulin, Blood 3.8 g/dL (2.2-4.0); Potassium, Blood 4.5 mmol/L (3.5-5.5)
[2024-11-17] MEDS ORDERED: Cyanocobalamin 1000 MCG/ML 1ML Vial IM SCH (09:00)
[2024-11-17] MEDS ORDERED: Iron Dextran 50 MG / ML 2ML Vial IV ONE (09:00)
[2024-11-17] MEDS ORDERED: Iron Dextran 975 MG in NS 250 ML IV ONE (10:00)
[2024-11-17 11:10] VITALS: BP 113/65
[2024-11-17] MEDS ORDERED: Diazepam 2 MG Tab PO ONE (14:30)
[2024-11-17 15:45] VITALS: BP 123/67
--- NOTE | 2024-11-17 18:40 | NUR ---
SHIFT SUMMARY PATIENT A/OX4, ABLE TO MAKE NEEDS KNOWN. PLEASANT AND COOPERATIVE WITH CARE, IRRITABLE INTERMITTENTLY. NO IV ORDER AND TELEMETRY DISCONTINUED THIS SHIFT. IV ABX CHANGED TO PO. DRESSING TO LEFT LOWER EXTREMITY CHANGED THIS SHIFT, FOOT 3+ EDEMA AND LLE 2+ EDEMA. IV REMOVED DUE TO LEAKING. MRI COMPLETED TO CERVICAL SPINE. PLAN TO DISCHARGE TOMORROW. NO OTHER CONCERNS AT THIS TIME.
[2024-11-17 20:11] VITALS: BP 108/56
--- NOTE | 2024-11-18 03:40 | NUR ---
SHIFT SUMMARY NO ACUTE EVENTS DURING THIS SHIFT. PT IS EAGER TO DISCHARGE TODAY. COOPERATIVE WITH CARE. MEDICATED FOR BACKPAIN PER EMAR. VSS. BED AT THE LOWEST POSITION, CALL LIGHT WITHIN REACH. PT IS ABLE TO MAKE HER NEEDS KNOWN AND COOPERATIVE WITH CARE.
[2024-11-18 06:06] LABS: BASOPHILS ABSOLUTE AUTO 0.05 K/mm3 (0.00-0.23); BASOPHILS PERCENT AUTO 1 % (0-2); EOSINOPHILS ABSOLUTE AUTO 0.07 K/mm3 (0.00-0.68); EOSINOPHILS PERCENT AUTO 1 % (0-6); Hematocrit 28.8 % (33.0-51.0); Hemoglobin 8.6 g/dL (11.5-16.0); IMMATURE GRAN ABSOLUTE AUTO 0.17 K/mm3 (0.00-0.10); IMMATURE GRAN PERCENT AUTO 2 % (0-1); LYMPHOCYTES ABSOLUTE AUTO 1.89 K/mm3 (0.84-5.20); LYMPHOCYTES PERCENT AUTO 23 % (21-46); MONOCYTES ABSOLUTE AUTO 0.83 K/mm3 (0.16-1.47); MONOCYTES PERCENT AUTO 10 % (4-13); Mean Corpuscular HGB 31.2 pg (26.0-34.0); Mean Corpuscular HGB Conc 29.9 g/dL (31.5-36.5); Mean Corpuscular Volume 104 fL (80-100); Mean Platelet Volume 9.5 fL (9.1-12.4); NEUTROPHILS ABSOLUTE AUTO 5.22 K/mm3 (1.96-9.15); NEUTROPHILS PERCENT AUTO 63 % (41-73); Platelet Count 315 K/mm3 (150-400); RDW Coefficient Variation 16.1 % (11.7-14.2); RDW Standard Deviation 61.5 fL (35.1-46.3); Red Blood Cell Count 2.76 M/mm3 (3.80-5.20); White Blood Cell Count 8.23 K/mm3 (4.00-11.30)
[2024-11-18 06:33] LABS: Albumin, Blood 2.4 g/dL (3.4-5.0); Albumin/Globulin Ratio 0.6 (0.8-1.8); Bilirubin, Total 0.2 mg/dL (0.1-1.0); Bun/Creatinine Ratio 14.2 (12.0-20.0); Calcium, Blood 9.7 mg/dL (8.5-10.1); Creatinine, Blood 0.85 mg/dL (0.40-1.00); Globulin, Blood 3.7 g/dL (2.2-4.0); Potassium, Blood 4.8 mmol/L (3.5-5.5); Total Protein, Blood 6.1 g/dL (6.4-8.2)
[2024-11-18 07:07] VITALS: BP 105/53
[2024-11-18] MEDS ORDERED: Cefdinir 300 MG Cap PO SCH (09:00)
[2024-11-18] MEDS ORDERED: Acetaminophen/Codeine 300-30 mg PO PRN (12:40)
[2024-11-18] MEDS ORDERED: Albuterol HFA200 ACT/6.7 GM INH INH PRN (12:55)
[2024-11-18] MEDS ORDERED: CEFD300 PO (14:08)
[2024-11-18] MEDS ORDERED: MIDO5 PO (14:09)
[2024-11-18] MEDS ORDERED: VISBIOME 112.51 EACH PO (14:09)
[2024-11-18 14:22] VITALS: BP 114/66
--- NOTE | 2024-11-18 14:59 | NUR ---
PT DISCHARGED HOME VIA PRIVATE VEHICLE. PT CHOSE TO WALK WITH HER FWW. EDUCATION PROVIDED.
[2024-11-20] MEDS ORDERED: Ferrous Sulfate 325 MG Tab PO SCH (09:00)
[2024-11-20] MEDS ORDERED: Ergocalciferol 50000 Intn'l Units PO SCH (09:00)
== END 2024-11-18 14:55 | disposition home health service (06) | DRG 872 ==
LOC: ER 15:32 → PCU 21:23 → MEDS 21:23 → ERHOLD 21:23 → PCU 11-14 08:05 → MEDS 11-16 13:04 → ENPENDDIS 11-18 13:42 → MEDS 11-18 14:55
PROVIDERS: Family Medicine; Student in an Organized Health Care Education/Training Program; ADMIT Student in an Organized Health Care Education/Training Program
DX: A41.9 Sepsis, unspecified organism (principal); L03.116 Cellulitis of left lower limb; N17.9 Acute kidney failure, unspecified; E87.1 Hypo-osmolality and hyponatremia; I13.0 Hypertensive heart and chronic kidney disease with heart failure and stage 1 through stage 4 chronic kidney disease, or unspecified chronic kidney disease; I50.30 Unspecified diastolic (congestive) heart failure; L97.829 Non-pressure chronic ulcer of other part of left lower leg with unspecified severity; N18.31 Chronic kidney disease, stage 3a; E11.22 Type 2 diabetes mellitus with diabetic chronic kidney disease; D50.9 Iron deficiency anemia, unspecified; E53.8 Deficiency of other specified B group vitamins; I48.0 Paroxysmal atrial fibrillation; I95.9 Hypotension, unspecified; J44.89 Other specified chronic obstructive pulmonary disease; F17.210 Nicotine dependence, cigarettes, uncomplicated; I25.10 Atherosclerotic heart disease of native coronary artery without angina pectoris; M48.02 Spinal stenosis, cervical region; M51.16 Intervertebral disc disorders with radiculopathy, lumbar region; M81.0 Age-related osteoporosis without current pathological fracture; M47.22 Other spondylosis with radiculopathy, cervical region; E55.9 Vitamin D deficiency, unspecified; E88.09 Other disorders of plasma-protein metabolism, not elsewhere classified; R65.20 Severe sepsis without septic shock; T50.2X5A Adverse effect of carbonic-anhydrase inhibitors, benzothiadiazides and other diuretics, initial encounter; E86.0 Dehydration; E86.1 Hypovolemia; E87.8 Other disorders of electrolyte and fluid balance, not elsewhere classified; Z86.73 Personal history of transient ischemic attack (TIA), and cerebral infarction without residual deficits; Z91.81 History of falling; Z79.01 Long term (current) use of anticoagulants; Z85.3 Personal history of malignant neoplasm of breast; Z90.12 Acquired absence of left breast and nipple; Z88.1 Allergy status to other antibiotic agents; Z88.2 Allergy status to sulfonamides; Z88.0 Allergy status to penicillin; Z88.8 Allergy status to other drugs, medicaments and biological substances; Z79.1 Long term (current) use of non-steroidal anti-inflammatories (NSAID); Z79.82 Long term (current) use of aspirin; Z79.52 Long term (current) use of systemic steroids
CPT/HCPCS: 36415; 71046; 72141; 72148; 80053; 80202; 82607; 82728; 83036; 83540; 83550; 83605; 83735; 83880; 83935; 84300; 84443; 85025; 87040; 93306; 93971; 94640; 94664; 94760; 94762; 96365; 99285-25; A9270; J0696; J1750; J2060; J3370; J3420; J3475; J7050; J7120

== ENCOUNTER 2025-03-04 19:52 | Inpatient (IN) | payer OTHER ==
[~2025-03-04] VITALS: Ht 160 cm; Wt 73.8 kg
[~2025-03-04 19:52] MED LIST changes: +CEFD300 PO; +CODACE30 PO; +DIAZ2 PO; +ERGO50000 PO; +FERROUS SULFAT325 M3 PO; +GABA100 PO; +IPRAT-ALBUT 0.5-3 ML INH; +K-TAB ER20 ME1 PO; +MIDO5 PO; +MONDOXYNE NL100 MG PO; +VISBIOME 112.51 EACH PO
[2025-03-04] MEDS ORDERED: Ondansetron HCl 2 MG / ML 2ML Vial IV PRN (20:55)
[2025-03-04 21:05] LABS: BASOPHILS ABSOLUTE AUTO 0.04 K/mm3 (0.00-0.23); BASOPHILS PERCENT AUTO 0 % (0-2); EOSINOPHILS ABSOLUTE AUTO 0.35 K/mm3 (0.00-0.68); EOSINOPHILS PERCENT AUTO 3 % (0-6); Hematocrit 21.3 % (33.0-51.0); Hemoglobin 6.6 g/dL (11.5-16.0); IMMATURE GRAN ABSOLUTE AUTO 0.05 K/mm3 (0.00-0.10); IMMATURE GRAN PERCENT AUTO 0 % (0-1); LYMPHOCYTES ABSOLUTE AUTO 1.95 K/mm3 (0.84-5.20); LYMPHOCYTES PERCENT AUTO 17 % (21-46); MONOCYTES ABSOLUTE AUTO 0.98 K/mm3 (0.16-1.47); MONOCYTES PERCENT AUTO 8 % (4-13); Mean Corpuscular HGB Conc 31.0 g/dL (31.5-36.5); Mean Corpuscular Volume 97 fL (80-100); NEUTROPHILS ABSOLUTE AUTO 8.23 K/mm3 (1.96-9.15); NEUTROPHILS PERCENT AUTO 71 % (41-73); NRBC ABSOLUTE 0.00 K/mm3 (0.00-0.02); NRBC Auto 0.0 /100 WBC (0.0-0.2); Platelet Count 267 K/mm3 (150-400); RDW Coefficient Variation 16.5 % (11.7-14.2); RDW Standard Deviation 58.7 fL (35.1-46.3)
[2025-03-04 21:18] LABS: Alanine Aminotransfer (ALT/SGP 12.0 U/L (12-78); Albumin, Blood 2.6 g/dL (3.4-5.0); Albumin/Globulin Ratio 0.7 (0.8-1.8); Anion Gap 9.0 mmol/L (3-11); Aspartate Aminotrans (AST/SGOT 16.0 U/L (12-37); Bilirubin, Total 0.3 mg/dL (0.1-1.0); Blood Urea Nitrogen 36.0 mg/dL (8-24); CO2, Blood 25.0 mmol/L (21-32); Calcium, Blood 8.2 mg/dL (8.5-10.1); Chloride, Blood 105.0 mmol/L (98-108); Creatinine, Blood 1.56 mg/dL (0.40-1.00); Globulin, Blood 3.6 g/dL (2.2-4.0); Glucose, Blood 127.0 mg/dL (70-99); Potassium, Blood 2.9 mmol/L (3.5-5.5); Sodium, Blood 136.0 mmol/L (136-145); Total Protein, Blood 6.2 g/dL (6.4-8.2)
[2025-03-04] MEDS ORDERED: FentaNYL Citrate 50 MCG/ML 2 ML Injection IV ONE (22:10)
[2025-03-05] VITALS (9 sets, daily range): BP systolic 81–120; BP diastolic 52–72
[2025-03-05] MEDS ORDERED: FentaNYL Citrate 50 MCG/ML 2 ML Injection IV ONE (00:10)
[2025-03-05] MEDS ORDERED: Ondansetron HCl 2 MG / ML 2ML Vial IV PRN (02:30)
[2025-03-05] MEDS ORDERED: FLU VACC TS2025(65UP)/MF59C/PF 45 MCG/0.5 ML SYRINGE IM SCH (02:30)
[2025-03-05 02:43] LABS: Magnesium, Blood 1.7 mg/dL (1.6-2.4)
[2025-03-05] MEDS ORDERED: NS 1,000 ML IV ONE (02:49)
[2025-03-05] MEDS ORDERED: CefTRIAXone Sodium 2,000 MG in NS 100 ML IV SCH (03:56)
[2025-03-05] MEDS ORDERED: MetroNIDAZOLE 500MG/NS 100 ml 100 ML IV SCH (04:02)
[2025-03-05] MEDS ORDERED: Naloxone HCl 0.4MG / ML 1ML Vial IV PRN (04:30)
[2025-03-05] MEDS ORDERED: FentaNYL Citrate 50 MCG/ML 2 ML Injection IV PRN (04:30)
[2025-03-05 06:30] LABS: BASOPHILS ABSOLUTE AUTO 0.04 K/mm3 (0.00-0.23); BASOPHILS PERCENT AUTO 1 % (0-2); EOSINOPHILS ABSOLUTE AUTO 0.39 K/mm3 (0.00-0.68); EOSINOPHILS PERCENT AUTO 5 % (0-6); Hematocrit 21.7 % (33.0-51.0); Hemoglobin 6.6 g/dL (11.5-16.0); IMMATURE GRAN ABSOLUTE AUTO 0.02 K/mm3 (0.00-0.10); IMMATURE GRAN PERCENT AUTO 0 % (0-1); LYMPHOCYTES ABSOLUTE AUTO 1.68 K/mm3 (0.84-5.20); LYMPHOCYTES PERCENT AUTO 23 % (21-46); MONOCYTES ABSOLUTE AUTO 0.72 K/mm3 (0.16-1.47); MONOCYTES PERCENT AUTO 10 % (4-13); Mean Corpuscular HGB Conc 30.4 g/dL (31.5-36.5); Mean Corpuscular Volume 96 fL (80-100); NEUTROPHILS ABSOLUTE AUTO 4.48 K/mm3 (1.96-9.15); NEUTROPHILS PERCENT AUTO 61 % (41-73); NRBC ABSOLUTE 0.00 K/mm3 (0.00-0.02); NRBC Auto 0.0 /100 WBC (0.0-0.2); Platelet Count 190 K/mm3 (150-400); RDW Coefficient Variation 17.7 % (11.7-14.2); RDW Standard Deviation 62.2 fL (35.1-46.3)
[2025-03-05 06:39] LABS: Source, Urine Voided
[2025-03-05 06:45] LABS: Bilirubin, Urine Neg (Neg); Color, Urine Yellow (P-Yellow); Glucose Qualitative, Urine Neg (Neg); Ketones, Urine Neg (Neg); Leukocyte Esterase, Urine 1+ (Neg); Protein, Urine 1+ (Neg); Specific Gravity, Urine 1.015 (1.003-1.022); Urobilinogen, Urine NORM (Normal)
[2025-03-05 06:45] LABS: Prothrombin Time Results 11.9 Sec (9.7-11.5)
--- NOTE | 2025-03-05 06:49 | NUR ---
ADMIT NOTE/ SHIFT SUMMARY REPORT RECEIVED BY THIS RN FROM PRESS HELPER TARAH PT ARRIVED TO PCU 07 @ APPROX 0325, PT WAS SLID OVER BY MEDICAL STAFF FROM ER BED TO PCU BED. PT A&O X4, HOLDING APPROPRIATE CONVERSATION, MOVING ALL EXTREMITIES WITH PURPOSE/ WEAKNESS, OBEYS COMMANDS, REPOSITIONING SELF IN BED, SBA WITH FWW/ PT USES FWW AT BASELINE, CALLS APPROPRIATELY. CONTINUOUS SPO2, SPO2 GREATER THAN 92% ON 2L O2 VIA NC, LUNGS SOUND COASE T/O WITH DIMINISHED BASES, PT REPORTS SOB WITH ACTIVITY, NO SIGNS OF RESPIRATORY DISTRESS NOTED. CONTINUOUS TELE MONITORING, SINUS 60-70 S, BP SOFT WITH SBP 80-100 S MD AWARE, CAP REFILL WNL, PULSES PRESENT T/O, DENIES CHEST P/P T/O THIS SHIFT. BOWEL TONES PRESENT IN ALL 4Q, PT DENIES FEELINGS OF NAUSEA OR CONSTIPATION, PT REPORTS INTERMITTENT RUQ PAIN. PT CONTINENT OR URINE PT RECEIVED 1 UNIT PRBS S THIS SHIFT BED LOWEST POSITION, CALL LIGHT IN REACH, AWAITING TO GIVE REPORT TO ONCOMING RN.
[2025-03-05 07:27] LABS: U Amphetamine Screen Not Detected; U Barbituate Screen Not Detected; U Benzodiazapine Screen Not Detected; U Buprenorphine Screen Not Detected; U Cannabinoids Screen Not Detected; U Cocaine Screen Not Detected; U Methadone Screen Not Detected; U Methamphetamine Screen Not Detected; U Opiates Screen Not Detected; U Oxycodone Screen DETECTED; U Phencyclidine Screen Not Detected
[2025-03-05 07:59] LABS: Ferritin, Serum 24 ng/mL (8-252); Magnesium, Blood 1.8 mg/dL (1.6-2.4); Total Iron Binding Capacity 244 ug/dL (250-450)
[2025-03-05 08:12] LABS: Albumin, Blood 2.1 g/dL (3.4-5.0); Albumin/Globulin Ratio 0.7 (0.8-1.8); Anion Gap 8 mmol/L (3-11); Aspartate Aminotrans (AST/SGOT 9 U/L (12-37); Bilirubin, Total 0.4 mg/dL (0.1-1.0); Blood Urea Nitrogen 33 mg/dL (8-24); CO2, Blood 24 mmol/L (21-32); Calcium, Blood 7.4 mg/dL (8.5-10.1); Chloride, Blood 110 mmol/L (98-108); Creatinine, Blood 1.44 mg/dL (0.40-1.00); Globulin, Blood 3.0 g/dL (2.2-4.0); Glucose, Blood 125 mg/dL (70-99); Potassium, Blood 3.1 mmol/L (3.5-5.5); Sodium, Blood 139 mmol/L (136-145); Total Protein, Blood 5.1 g/dL (6.4-8.2)
[2025-03-05 08:23] LABS: Alanine Aminotransfer (ALT/SGP <6 U/L (12-78)
[2025-03-05] MEDS ORDERED: Ergocalciferol 50000 Intn'l Units PO SCH (09:00)
[2025-03-05] MEDS ORDERED: NS 250 ML IV PRN (09:40)
[2025-03-05 14:32] LABS: Hematocrit 27.3 % (33.0-51.0); Hemoglobin 8.7 g/dL (11.5-16.0)
[2025-03-05] MEDS ORDERED: LORazepam 2 MG/ML 1ML Injection ONE (14:45)
[2025-03-05] MEDS ORDERED: LORazepam 2 MG/ML 1ML Injection IV ONE (15:15)
[2025-03-05] MEDS ORDERED: IBU800 M1 PO (15:38)
[2025-03-05] MEDS ORDERED: BUPR150ER PO (15:39)
[2025-03-05] MEDS ORDERED: PREGABALIN50 MG PO (15:40)
[2025-03-05] MEDS ORDERED: METOPROLOL SUCC25 MG PO (15:41)
[2025-03-05] MEDS ORDERED: PRAMIPEXOLE0.125 M1 PO (15:43)
[2025-03-05] MEDS ORDERED: FUROSEMIDE20 MG PO (15:44)
[2025-03-05 17:17] LABS: Anion Gap 7.0 mmol/L (3-11); Blood Urea Nitrogen 28.0 mg/dL (8-24); CO2, Blood 26.0 mmol/L (21-32); Calcium, Blood 8.4 mg/dL (8.5-10.1); Chloride, Blood 110.0 mmol/L (98-108); Creatinine, Blood 1.32 mg/dL (0.40-1.00); Glucose, Blood 93.0 mg/dL (70-99); Potassium, Blood 3.3 mmol/L (3.5-5.5); Sodium, Blood 140.0 mmol/L (136-145)
--- NOTE | 2025-03-05 18:08 | NUR ---
SHIFT SUMMARY: PT A&OX4. FOLLOWS COMMANDS AND MAKES NEEDS KNOWN TO STAFF. PT WAS ABLE TO GET UP TO THE BATHROOM WITH A FWW WITH NO COMPLAINTS. PT WENT FOR AN MRI THIS AFTERNOON WHICH SHE RECIEVED NEGRO AND CHRIS FOR AND IS STILL A LITTLE CLOUDY AT THIS TIME. BED ALARM ON DUE TO PT BEING IMPULSIVE. PT HAS REMAINED FREE OF ANY CP, PRESSURE, TIGHTNESS OR SOB. BLOOD PRESSURE WAS LOW THIS AM BUT HAS SINCE RESOLVED AFTER MIDODRINE AND A UNIT OF BLOOD THIS AM. PT IN NSR. VSS. MAP >65. NO SIGNIFICANT EVENTS HAPPENED DURING THIS SHIFT. WILL CONTINUE TO CARE FOR PT TILL END OF SHIFT.
[2025-03-06] VITALS: BP 111/66
[2025-03-06 04:00] VITALS: BP 115/71
[2025-03-06 04:25] LABS: BASOPHILS ABSOLUTE AUTO 0.06 K/mm3 (0.00-0.23); BASOPHILS PERCENT AUTO 1 % (0-2); EOSINOPHILS ABSOLUTE AUTO 0.31 K/mm3 (0.00-0.68); EOSINOPHILS PERCENT AUTO 4 % (0-6); Hematocrit 28.6 % (33.0-51.0); Hemoglobin 9.0 g/dL (11.5-16.0); IMMATURE GRAN ABSOLUTE AUTO 0.04 K/mm3 (0.00-0.10); IMMATURE GRAN PERCENT AUTO 1 % (0-1); LYMPHOCYTES ABSOLUTE AUTO 1.87 K/mm3 (0.84-5.20); LYMPHOCYTES PERCENT AUTO 22 % (21-46); MONOCYTES ABSOLUTE AUTO 0.78 K/mm3 (0.16-1.47); MONOCYTES PERCENT AUTO 9 % (4-13); Mean Corpuscular HGB Conc 31.5 g/dL (31.5-36.5); Mean Corpuscular Volume 93 fL (80-100); NEUTROPHILS ABSOLUTE AUTO 5.34 K/mm3 (1.96-9.15); NEUTROPHILS PERCENT AUTO 64 % (41-73); NRBC ABSOLUTE 0.00 K/mm3 (0.00-0.02); NRBC Auto 0.0 /100 WBC (0.0-0.2); Platelet Count 253 K/mm3 (150-400); RDW Coefficient Variation 17.9 % (11.7-14.2); RDW Standard Deviation 60.7 fL (35.1-46.3)
[2025-03-06 04:46] LABS: Anion Gap 7.0 mmol/L (3-11); Blood Urea Nitrogen 26.0 mg/dL (8-24); CO2, Blood 26.0 mmol/L (21-32); Calcium, Blood 8.4 mg/dL (8.5-10.1); Chloride, Blood 113.0 mmol/L (98-108); Creatinine, Blood 1.06 mg/dL (0.40-1.00); Glucose, Blood 87.0 mg/dL (70-99); Potassium, Blood 3.4 mmol/L (3.5-5.5); Sodium, Blood 143.0 mmol/L (136-145)
--- NOTE | 2025-03-06 05:09 | NUR ---
SHIFT SUMMARY PT HAS TOLERATED SHIFT WELL WITH NO SIGNIFICANT EVENTS OVERNIGHT. PT IS CURRENTLY RESTING COMFORTABLY IN ROOM. PT HAS BEEN ABLE TO STAND AND PIVOT TWO TIMES TO BEDSIDE COMMODE OVERNIGHT. PT HAS HAD SOME COMPLAINTS OF PAIN THAT HAS BEEN WELL CONTROLLED WITH MEDICATIONS PER AUG. CALL LIGHT WITHIN REACH. WILL CONTINUE TO MONITOR UNTIL REPORT PASSED TO DAY SHIFT TEAM.
--- NOTE | 2025-03-06 07:28 | NUR ---
ASSUMPTION OF CARE: THIS RN TO ASSUME CARE FROM CONFUCIANISM RN. PT RESTING IN BED WITH NO COMPLAINTS AT THIS TIME. NOT IN ANY DISTRESS. REMAINS ON CARDIAC AND VS MONITORING. BED IN LOW POSTION WITH BED ALARM ON. CALL LIGHT IN REACH.
[2025-03-06 08:02] VITALS: BP 126/66
[2025-03-06] MEDS ORDERED: OXAYDO5 M1 PO (11:08)
[2025-03-06] MEDS ORDERED: AMOCLA875 PO (11:10)
[2025-03-06 11:28] VITALS: BP 115/61
--- NOTE | 2025-03-06 11:56 | NUR ---
SHIFT SUMMARY/ DISCHARGE NOTE: NO SIGNIFICANT EVENTS HAPPENED DURING THIS SHIFT. PT WAS DISCHARGED TO HOME IN NO ACUTE STRESS. THIS RN WENT OVER WRITTEN AND VERBAL DC INSTRUCTIONS AND ADDRESSED ANY QUESTIONS OR CONCERNS. POWERGLIDE AND IV WERE REMOVED. BELONGINGS COLLECTED AND WERE TAKEN HOME WITH PT.
== END 2025-03-06 11:27 | disposition home or self-care (01) | DRG 682 ==
LOC: ER 19:52 → PCU 03-05 02:24
PROVIDERS: Emergency Medicine; Family Medicine; Student in an Organized Health Care Education/Training Program; ADMIT Student in an Organized Health Care Education/Training Program
DX: N17.9 Acute kidney failure, unspecified (principal); G92.8 Other toxic encephalopathy; K57.32 Diverticulitis of large intestine without perforation or abscess without bleeding; N39.0 Urinary tract infection, site not specified; E87.6 Hypokalemia; I25.10 Atherosclerotic heart disease of native coronary artery without angina pectoris; E78.00 Pure hypercholesterolemia, unspecified; J44.89 Other specified chronic obstructive pulmonary disease; F17.210 Nicotine dependence, cigarettes, uncomplicated; E88.09 Other disorders of plasma-protein metabolism, not elsewhere classified; I48.0 Paroxysmal atrial fibrillation; M81.0 Age-related osteoporosis without current pathological fracture; I95.89 Other hypotension; D63.1 Anemia in chronic kidney disease; D50.9 Iron deficiency anemia, unspecified; N18.31 Chronic kidney disease, stage 3a; H40.9 Unspecified glaucoma; H35.30 Unspecified macular degeneration; Z90.12 Acquired absence of left breast and nipple; I87.2 Venous insufficiency (chronic) (peripheral); M54.50 Low back pain, unspecified; G89.29 Other chronic pain; K74.60 Unspecified cirrhosis of liver; K76.89 Other specified diseases of liver; E11.22 Type 2 diabetes mellitus with diabetic chronic kidney disease; Z85.3 Personal history of malignant neoplasm of breast; Z83.3 Family history of diabetes mellitus; Z98.1 Arthrodesis status; Z98.890 Other specified postprocedural states; Z88.1 Allergy status to other antibiotic agents; Z88.2 Allergy status to sulfonamides; Z88.8 Allergy status to other drugs, medicaments and biological substances; Z79.01 Long term (current) use of anticoagulants; Z79.899 Other long term (current) drug therapy; Z86.73 Personal history of transient ischemic attack (TIA), and cerebral infarction without residual deficits; Z90.49 Acquired absence of other specified parts of digestive tract; Z90.710 Acquired absence of both cervix and uterus
CPT/HCPCS: 36430; 70450; 71046; 74177; 74181; 80048; 80053; 81001; 82105; 82607; 82728; 82746; 82947; 83540; 83550; 83690; 83735; 83880; 84484; 85014; 85018; 85025; 85610; 86140; 86850; 86900; 86901; 86923; 87086; 93005; 93010; 96374; 96375; 96376; 99285-25; A9270; J0696; J2060; J2405; J3010; J3480; J7030; J7050; P9016; Q9967

== ENCOUNTER 2025-03-08 09:57 | Emergency (ER) | payer OTHER ==
[~2025-03-08] VITALS: Ht 160 cm; Wt 69.0 kg
[~2025-03-08 09:57] MED LIST changes: +BUPR150ER PO; +FUROSEMIDE20 MG PO; +METOPROLOL SUCC25 MG PO; +OXAYDO5 M1 PO; +PRAMIPEXOLE0.125 M1 PO; +PREGABALIN50 MG PO
[2025-03-08 10:17] VITALS: BP 131/74
[2025-03-08] MEDS ORDERED: METO25ER PO (10:27)
[2025-03-08 11:21] LABS: BASOPHILS ABSOLUTE AUTO 0.06 K/mm3 (0.00-0.23); BASOPHILS PERCENT AUTO 1 % (0-2); EOSINOPHILS ABSOLUTE AUTO 0.11 K/mm3 (0.00-0.68); EOSINOPHILS PERCENT AUTO 1 % (0-6); Hematocrit 29.4 % (33.0-51.0); Hemoglobin 9.3 g/dL (11.5-16.0); IMMATURE GRAN ABSOLUTE AUTO 0.03 K/mm3 (0.00-0.10); IMMATURE GRAN PERCENT AUTO 0 % (0-1); LYMPHOCYTES ABSOLUTE AUTO 1.34 K/mm3 (0.84-5.20); LYMPHOCYTES PERCENT AUTO 17 % (21-46); MONOCYTES ABSOLUTE AUTO 0.56 K/mm3 (0.16-1.47); MONOCYTES PERCENT AUTO 7 % (4-13); Mean Corpuscular HGB Conc 31.6 g/dL (31.5-36.5); Mean Corpuscular Volume 96 fL (80-100); NEUTROPHILS ABSOLUTE AUTO 5.66 K/mm3 (1.96-9.15); NEUTROPHILS PERCENT AUTO 73 % (41-73); NRBC ABSOLUTE 0.00 K/mm3 (0.00-0.02); NRBC Auto 0.0 /100 WBC (0.0-0.2); Platelet Count 235 K/mm3 (150-400); RDW Coefficient Variation 16.9 % (11.7-14.2); RDW Standard Deviation 59.1 fL (35.1-46.3)
[2025-03-08 11:31] LABS: Alanine Aminotransfer (ALT/SGP 11.0 U/L (12-78); Albumin, Blood 2.6 g/dL (3.4-5.0); Albumin/Globulin Ratio 0.7 (0.8-1.8); Anion Gap 9.0 mmol/L (3-11); Aspartate Aminotrans (AST/SGOT 22.0 U/L (12-37); Bilirubin, Total 0.5 mg/dL (0.1-1.0); Blood Urea Nitrogen 11.0 mg/dL (8-24); CO2, Blood 25.0 mmol/L (21-32); Calcium, Blood 9.0 mg/dL (8.5-10.1); Chloride, Blood 110.0 mmol/L (98-108); Creatinine, Blood 0.7 mg/dL (0.40-1.00); Globulin, Blood 3.6 g/dL (2.2-4.0); Glucose, Blood 99.0 mg/dL (70-99); Magnesium, Blood 1.6 mg/dL (1.6-2.4); Potassium, Blood 3.7 mmol/L (3.5-5.5); Sodium, Blood 140.0 mmol/L (136-145); Total Protein, Blood 6.2 g/dL (6.4-8.2)
[2025-03-08 11:38] LABS: Source, Urine Clean Catch
[2025-03-08 11:41] LABS: Bilirubin, Urine Neg (Neg); Color, Urine Yellow (P-Yellow); Glucose Qualitative, Urine Neg (Neg); Ketones, Urine Neg (Neg); Leukocyte Esterase, Urine Neg (Neg); Protein, Urine Neg (Neg); Specific Gravity, Urine 1.010 (1.003-1.022); Urobilinogen, Urine NORM (Normal)
== END 2025-03-08 13:00 | disposition home or self-care (01) ==
LOC: ER 09:57
PROVIDERS: Emergency Medicine
DX: M54.50 Low back pain, unspecified (principal); G89.29 Other chronic pain; N17.9 Acute kidney failure, unspecified; D64.9 Anemia, unspecified; R74.01 Elevation of levels of liver transaminase levels; I10 Essential (primary) hypertension; J45.909 Unspecified asthma, uncomplicated; J44.9 Chronic obstructive pulmonary disease, unspecified; E11.9 Type 2 diabetes mellitus without complications; F17.210 Nicotine dependence, cigarettes, uncomplicated; Z88.1 Allergy status to other antibiotic agents; Z88.2 Allergy status to sulfonamides; Z88.8 Allergy status to other drugs, medicaments and biological substances; Z79.01 Long term (current) use of anticoagulants; Z79.899 Other long term (current) drug therapy
CPT/HCPCS: 71045; 80053; 81003; 83690; 83735; 83880; 85025; 93005; 93010; 99284-25

== ENCOUNTER 2025-03-29 00:33 | Day surgery (SDC) | payer OTHER ==
[~2025-03-29 00:33] MED LIST changes: +METO25ER PO
[2025-03-29] MEDS ORDERED: Lidocaine HCl 4% Cream 5 GM ONE (13:53)
== END 2025-03-29 23:00 | disposition home or self-care (01) ==
LOC: WOUND 00:33
DX: I89.0 Lymphedema, not elsewhere classified (principal); L97.822 Non-pressure chronic ulcer of other part of left lower leg with fat layer exposed; L97.812 Non-pressure chronic ulcer of other part of right lower leg with fat layer exposed; F17.210 Nicotine dependence, cigarettes, uncomplicated; Z88.1 Allergy status to other antibiotic agents; Z88.5 Allergy status to narcotic agent; Z88.8 Allergy status to other drugs, medicaments and biological substances; Z88.2 Allergy status to sulfonamides
CPT/HCPCS: A9270; G0463

== ENCOUNTER 2025-04-03 04:21 | Day surgery (SDC) | payer OTHER ==
[2025-04-03] MEDS ORDERED: Lidocaine HCl 4% Cream 5 GM ONE (13:21)
== END 2025-04-03 23:27 | disposition home or self-care (01) ==
LOC: WOUND 04:21
DX: I89.0 Lymphedema, not elsewhere classified (principal); L97.822 Non-pressure chronic ulcer of other part of left lower leg with fat layer exposed; I73.9 Peripheral vascular disease, unspecified; Q78.2 Osteopetrosis
CPT/HCPCS: 36415; 82306; 83970; A9270

== ENCOUNTER → 2025-04-05 | Outpatient (CLI) | payer OTHER ==
[2025-04-05 18:42] LABS: Calcium, Urine 6.3 mg/dL (< 17.5); Calcium, Urine Calculation 28.4 mg/24hrs (42.0-353.0)
== END ==
LOC: LAB SHORT 14:57 → LAB 14:57
PROVIDERS: Internal Medicine Endocrinology, Diabetes & Metabolism
DX: Q78.2 Osteopetrosis (principal)
CPT/HCPCS: 82340

== ENCOUNTER 2025-04-12 00:52 | Day surgery (SDC) | payer OTHER ==
[2025-04-12] MEDS ORDERED: Lidocaine HCl 4% Cream 5 GM ONE (14:46)
== END 2025-04-12 23:00 | disposition home or self-care (01) ==
LOC: WOUND 00:52
DX: I89.0 Lymphedema, not elsewhere classified (principal); I73.9 Peripheral vascular disease, unspecified; I10 Essential (primary) hypertension; J44.9 Chronic obstructive pulmonary disease, unspecified; E61.1 Iron deficiency
CPT/HCPCS: 80053; 82728; 83540; 83550; 84100; 85025; A6213; A9270; G0463

== ENCOUNTER → 2025-04-12 | Outpatient (CLI) | payer OTHER ==
[2025-04-12 17:33] LABS: BASOPHILS ABSOLUTE AUTO 0.06 K/mm3 (0.00-0.23); BASOPHILS PERCENT AUTO 1 % (0-2); EOSINOPHILS ABSOLUTE AUTO 0.24 K/mm3 (0.00-0.68); EOSINOPHILS PERCENT AUTO 3 % (0-6); Hematocrit 37.2 % (33.0-51.0); Hemoglobin 11.4 g/dL (11.5-16.0); IMMATURE GRAN ABSOLUTE AUTO 0.02 K/mm3 (0.00-0.10); IMMATURE GRAN PERCENT AUTO 0 % (0-1); LYMPHOCYTES ABSOLUTE AUTO 1.87 K/mm3 (0.84-5.20); LYMPHOCYTES PERCENT AUTO 26 % (21-46); MONOCYTES ABSOLUTE AUTO 0.49 K/mm3 (0.16-1.47); MONOCYTES PERCENT AUTO 7 % (4-13); Mean Corpuscular HGB Conc 30.6 g/dL (31.5-36.5); Mean Corpuscular Volume 97 fL (80-100); NEUTROPHILS ABSOLUTE AUTO 4.44 K/mm3 (1.96-9.15); NEUTROPHILS PERCENT AUTO 62 % (41-73); NRBC ABSOLUTE 0.00 K/mm3 (0.00-0.02); NRBC Auto 0.0 /100 WBC (0.0-0.2); Platelet Count 300 K/mm3 (150-400); RDW Coefficient Variation 15.7 % (11.7-14.2); RDW Standard Deviation 56.3 fL (35.1-46.3)
[2025-04-12 23:16] LABS: Alanine Aminotransfer (ALT/SGP 11.0 U/L (12-78); Albumin, Blood 2.9 g/dL (3.4-5.0); Albumin/Globulin Ratio 0.9 (0.8-1.8); Anion Gap 10.0 mmol/L (3-11); Aspartate Aminotrans (AST/SGOT 16.0 U/L (12-37); Bilirubin, Total 0.4 mg/dL (0.1-1.0); Blood Urea Nitrogen 9.0 mg/dL (8-24); CO2, Blood 26.0 mmol/L (21-32); Calcium, Blood 8.4 mg/dL (8.5-10.1); Chloride, Blood 106.0 mmol/L (98-108); Creatinine, Blood 0.8 mg/dL (0.40-1.00); Ferritin, Serum 130.0 ng/mL (8-252); Globulin, Blood 3.3 g/dL (2.2-4.0); Glucose, Blood 105.0 mg/dL (70-99); Phosphorus, Blood 2.7 mg/dL (2.5-4.9); Potassium, Blood 3.8 mmol/L (3.5-5.5); Sodium, Blood 138.0 mmol/L (136-145); Total Iron Binding Capacity 224.0 ug/dL (250-450); Total Protein, Blood 6.2 g/dL (6.4-8.2)
== END | disposition home or self-care (01) ==
LOC: LAB SHORT 15:33 → LAB 15:33
PROVIDERS: Internal Medicine Hematology & Oncology
DX: E61.1 Iron deficiency (principal)
CPT/HCPCS: 80053; 82728; 83540; 83550; 84100; 85025

== ENCOUNTER 2025-04-17 00:53 | Day surgery (SDC) | payer OTHER | END 2025-04-17 23:00 | disposition home or self-care (01) | LOC: WOUND 00:53 | DX: I89.0 Lymphedema, not elsewhere classified (principal); L97.822 Non-pressure chronic ulcer of other part of left lower leg with fat layer exposed; L97.811 Non-pressure chronic ulcer of other part of right lower leg limited to breakdown of skin; I73.9 Peripheral vascular disease, unspecified ==

== ENCOUNTER 2025-04-24 00:28 | Day surgery (SDC) | payer OTHER | END 2025-04-24 23:28 | disposition home or self-care (01) | LOC: WOUND 00:28 | DX: I89.0 Lymphedema, not elsewhere classified (principal); L97.822 Non-pressure chronic ulcer of other part of left lower leg with fat layer exposed; L97.811 Non-pressure chronic ulcer of other part of right lower leg limited to breakdown of skin; I73.9 Peripheral vascular disease, unspecified | CPT/HCPCS: G0463 ==

== ENCOUNTER 2025-05-01 01:00 | Day surgery (SDC) | payer OTHER | END 2025-05-01 22:00 | disposition home or self-care (01) | LOC: WOUND 01:00 | DX: I89.0 Lymphedema, not elsewhere classified (principal); I73.9 Peripheral vascular disease, unspecified; N18.2 Chronic kidney disease, stage 2 (mild); D63.1 Anemia in chronic kidney disease; N25.81 Secondary hyperparathyroidism of renal origin | CPT/HCPCS: 36415; 80053; 82248; 82306; 82607; 82728; 82746; 83540; 83550; 83970; 84100; 84443; 85025; 86039; G0463 ==

== ENCOUNTER → 2025-05-03 | Outpatient (CLI) | payer OTHER ==
[2025-05-03 19:49] LABS: Bacterial Vaginosis PCR Positive (NEGATIVE); Candida Group, PCR NOT DETECTED (NOT DETECT); Candida glabrata-krusei, PCR DETECTED (NOT DETECT)
== END ==
LOC: LAB SHORT 17:04 → LAB 17:04
PROVIDERS: Family Medicine
DX: N89.8 Other specified noninflammatory disorders of vagina (principal)
CPT/HCPCS: 81515